=== PATIENT | female | born 1945 | race Caucasian/White ===

== ENCOUNTER 2020-02-27 20:10 | Emergency (ER) | payer MEDICARE, OTHER ==
--- NOTE | 2020-02-27 20:53 | EDM.PDOC ---
<Eliza Bautista V - Last Filed: 02/27/20 22:05> ED HPI GENERAL MEDICAL PROBLEM - General Chief Complaint: Abdominal Pain Stated Complaint: NO BOWEL MOVEMENT IN 7 DAYS ABDOMINAL PAIN Time Seen by Provider: 02/27/20 20:43 Source of Information: Reports: Patient, RN Notes Reviewed History Limitations: Reports: No Limitations - History of Present Illness INITIAL COMMENTS - FREE TEXT/NARRATIVE: Patient is a 75-year-old female who presents to the ED for evaluation of her constipation. Patient notes that she has had recent eyelid surgery for eyelid droop. She has been on pain medications, but states she has not been taking of these the last 2 days. Patient notes that her last regular bowel movement was about 1 week ago Thursday. She has tried mag citrate and is on a stool softener, but states she has not been able to get any stool out. States when she goes to the bathroom all she does is P. She is nauseous, and did vomit on the way to the ER, she states she just has not had much of an appetite so she is been grazing the past few days and not really eaten a strong meal. She does complain of some generalized abdomen pain/cramping, and bloating sensation. She is not had any fevers or chills, cough or shortness of breath. Her primary care provider is Dr. Agus Grande. Lower Abdomen Pain Score (Numeric/FACES): 7 - Related Data Allergies Allergy/AdvReac Type Severity Reaction Status Date / Time latex Allergy Rash Verified 12/15/14 13:43 Sulfa (Sulfonamide Allergy Rash Verified 12/15/14 13:43 Antibiotics) Home Meds: Home Meds Budesonide/Formoterol [Symbicort 160-4.5 MCG] 1 puff INH DAILY 10/18/13 [History] FLUoxetine HCl [Fluoxetine HCl] 20 mg PO DAILY 10/18/13 [History] Simvastatin 20 mg PO BEDTIME 10/18/13 [History] Methotrexate 250 mg PO WEEKLY 12/15/14 [History] Diltiazem [Cardizem CD] 180 mg PO DAILY 30 Days cap.cd 12/17/14 [Rx] Insulin Aspart [NovoLOG] 0 unit SUBCUT QIDACANDBED pen 12/17/14 [Rx] Metoprolol Tartrate [Lopressor] 25 mg PO Q12HR 30 Days tablet 12/17/14 [Rx] Rivaroxaban [Xarelto] 20 mg PO DAILY #30 tablet 12/17/14 [Rx] metFORMIN [Glucophage] 850 mg PO BID 30 Days tablet 12/17/14 [Rx] Past Medical History - Past Surgical History HEENT Surgical History: Reports: Other (See Below) Other HEENT Surgeries/Procedures: Tooth implant; eyelid lift for drooping eyelids ED ROS GENERAL - Review of Systems Review Of Systems: Comprehensive ROS is negative, except as noted in HPI. ED EXAM, GI/ABD - Physical Exam Exam: See Below Exam Limited By: No Limitations General Appearance: Alert, WD/WN, No Apparent Distress Respiratory/Chest: No Respiratory Distress, Lungs Clear, Normal Breath Sounds, No Accessory Muscle Use, Chest Non-Tender Cardiovascular: Normal Peripheral Pulses, Regular Rate, Rhythm, No Edema GI/Abdominal Exam: Normal Bowel Sounds, Soft, No Distention, No Mass, Tender (mild generalized tenderness) Extremities: Normal Inspection, Normal Capillary Refill Neurological: Alert, Oriented, Normal Cognition, No Motor/Sensory Deficits Psychiatric: Normal Affect, Normal Mood Skin Exam: Warm, Dry, Intact, Normal Color, No Rash Course - Re-Assessments/Exams Free Text/Narrative Re-Assessment/Exam: 02/27/20 20:53 Patient presents to the ED for her constipation. Will get KUB x-ray for initial exam, and then we will formulate a plan to help get her bowels moving. 02/27/20 21:44 X-ray does demonstrate quite a large stool ball within the rectum, some gas in the transverse colon, no discernible air-fluid levels. And some stool within the right colon as well. Plan is to get her some Zofran for her nausea, get a fleets enema to dislodge the stool ball in her rectum and then give her another dose of mag citrate to get her bowels moving again. Patient is okay with this plan at this time. 02/27/20 22:05 Case was discussed with Dr. Pineda, he will attend the patient care at this time. Departure - Departure Time of Disposition: 22:05 Disposition: Home, Self-Care 01 Condition: Good Clinical Impression: Constipation Qualifiers: Constipation type: drug induced constipation Qualified Code(s): K59.03 - Drug induced constipation - Discharge Information *PRESCRIPTION DRUG MONITORING PROGRAM REVIEWED*: No *COPY OF PRESCRIPTION DRUG MONITORING REPORT IN PATIENT CLAUDIA: No Instructions: Constipation, Adult, Atnx-cb-Coix, Probiotics Referrals: Agus Grande Jr, MD [Primary Care Provider] - Forms: ED Department Discharge Additional Instructions: You were evaluated in the ER today for your constipation. X-rays were taken, and this did demonstrate quite a large amount of stool within your rectum. You were given an enema, some meds for nausea and another bottle of mag citrate to help get your bowels moving again, this seemed to help relieve some of your constipation. I recommend that you go home try to increase your oral fluid intake, use a stool softener like MiraLAX or Dulcolax daily, incorporate probiotics in your diet to regulate normal bowel health as well. If you are to take narcotic medications, I recommend that you keep the stools extra soft and you might want to take a second dose of stool softeners throughout the day. Please return to the ER at any time if symptoms change or worsen. <Dannie Pineda - Last Filed: 02/27/20 22:23> Course - Orders/Labs/Meds Orders: Active Orders 24 hr Category Date Time Status Enema [RC] ASDIRECTED Care 02/27/20 21:38 Active KUB [Abdomen 1V Flat] [CR] Stat Exams 02/27/20 20:43 Taken Meds: Medications Discontinued Medications Generic Name Dose Route Start Last Admin Trade Name Dony PRN Reason Stop Dose Admin Magnesium Citrate 296 ml 02/27/20 21:38 02/27/20 21:46 Citrate Of Magnesia PO 02/27/20 21:39 296 ml ONETIME ONE Administration Ondansetron HCl 4 mg 02/27/20 21:38 02/27/20 21:46 Zofran Odt PO 02/27/20 21:39 4 mg ONETIME ONE Administration - Re-Assessments/Exams Free Text/Narrative Re-Assessment/Exam: 02/27/20 22:23 Is doing much better at this time she had a very good BM and would really like to go home we will discharge her with discharge instructions already done.
[2020-02-27] MEDS ORDERED: Magnesium Citrate Solution 296 ML Bottle PO ONE (21:38)
[2020-02-27] MEDS ORDERED: Ondansetron 4 MG Tab.DIS PO ONE (21:38)
--- NOTE | 2020-02-28 08:10 | CR ---
Abdomen: Supine view of the abdomen was obtained. Comparison: Prior CT abdomen and pelvis exam of 05/02/10. Bowel gas pattern appears normal. Mild scoliosis is noted within the spine with scattered disc space narrowing and endplate osteophytes. 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 This finding measures approximately 1.1 cm. Impression: 1. Findings believed to be incidental as noted above. Diagnostic code #2
== END 2020-02-27 22:34 | disposition home or self-care (01) ==
LOC: JD.ED 20:10
DX: K59.03 Drug induced constipation (principal); Z88.2 Allergy status to sulfonamides; Z91.040 Latex allergy status
CPT/HCPCS: 74018; 99283; A9270

== ENCOUNTER 2020-04-25 10:13 | Day surgery (SDC) | payer MEDICARE, OTHER ==
[~2020-04-25 10:13] MED LIST: Lactated Ringers 1,000 ML IV SCH; Lidocaine 1%/Sod Bicarbonate in NS 8.4% 1 ML Syringe IDERM PRN; Sodium Chloride 0.9% 10 ML Syringe FLUSH PRN
--- NOTE | 2020-04-25 10:49 | PCM.PREANE ---
Preanesthetic Assessment - Procedure Proposed Procedure: EGD and Colonoscopy - Anesthesia/Transfusion/Family Hx Anesthesia History: Prior Anesthesia Without Reaction - Review of Systems General: No Symptoms Pulmonary: No Symptoms Cardiovascular: No Symptoms Gastrointestinal: No Symptoms Neurological: No Symptoms Other: Reports: Diabetes - Physical Assessment NPO Status Date: 04/24/20 NPO Status Time: 22:00 Vital Signs: 122/67 87 98% ASA Class: 2 Mental Status: Alert & Oriented x3 Airway Class: Mallampati = 2 Dentition: Reports: Normal Dentition, [place](s) Thyro-Mental Finger Breadths: 3 Mouth Opening Finger Breadths: 3 ROM/Head Extension: Full Lungs: Clear to Auscultation, Normal Respiratory Effort Cardiovascular: Regular Rate, Regular Rhythm - Lab Values: Laboratory Last Values POC Glucose 154 mg/dL (83-110) H 04/25/20 10:33 - Allergies Allergies/Adverse Reactions: Allergies Allergy/AdvReac Type Severity Reaction Status Date / Time prednisone Allergy Arrhythmias Verified 04/24/20 11:23 Sulfa (Sulfonamide Allergy Rash Verified 04/24/20 11:23 Antibiotics) triamcinolone [From Kenalog] Allergy Arrhythmias Verified 04/24/20 11:23 - Anesthesia Plan Beta Rola: Metoprolol - Acknowledgements Anesthesia Type Planned: MAC Pt an Appropriate Candidate for the Planned Anesthesia: Yes Alternatives and Risks of Anesthesia Discussed w Pt/Guardian: Yes Pt/Guardian Understands and Agrees with Anesthesia Plan: Yes PreAnesthesia Questionnaire HEENT History: Reports: Sinusitis, Other (See Below) Other HEENT History: postnasal drip, pharyngitis Cardiovascular History: Reports: Afib, High Cholesterol, Other (See Below) Other Cardiovascular History: varicose veins with history of stab phlebectomy Respiratory History: Reports: Asthma, Other (See Below) Other Respiratory History: cough, bronchitis, pneumonia, reactive airway disease Gastrointestinal History: Reports: GERD, Other (See Below) Other Gastrointestinal History: post op nausea and vomiting Genitourinary History: Reports: Urinary Incontinence [employer]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 History: Reports: Other (See Below) Other OB/BYN History: ovarian cyst Musculoskeletal History: Reports: RA, Other (See Below) Other Musculoskeletal History: left leg pain, left hand laceration, left wrist pain Neurological History: Reports: None Psychiatric History: Reports: None Endocrine/Metabolic History: Reports: Diabetes, Type II, Obesity/BMI 30+ Hematologic History: Reports: None Immunologic History: Reports: None Oncologic (Cancer) History: Reports: None Dermatologic History: Reports: None - Infectious Disease History Infectious Disease History: Reports: None - Past Surgical History Head Surgeries/Procedures: Reports: None HEENT Surgical History: Reports: Adenoidectomy, Cataract Surgery, Tonsillectomy, Other (See Below) Other HEENT Surgeries/Procedures: Tooth implant; eyelid lift for drooping eyelids Cardiovascular Surgical History: Reports: None Respiratory Surgical History: Reports: None GI Surgical History: Reports: Appendectomy, Colonoscopy Female Surgical History: Reports: Breast Reduction Male Surgical History: Reports: None Endocrine Surgical History: Reports: None Neurological Surgical History: Reports: Other (See Below) Other Neurological Surgeries/Procedures: spine surgery Musculoskeletal Surgical History: Reports: Other (See Below) Other Musculoskeletal Surgeries/Procedures:: right shouler surgery, knee arthroscopy Oncologic Surgical History: Reports: None Dermatological Surgical History: Reports: None - SUBSTANCE USE Tobacco Use Status *Q: Never Tobacco User - HOME MEDS Home Medications: Home Meds FLUoxetine HCl [Fluoxetine HCl] 20 mg PO DAILY 10/18/13 [History] Aspirin 325 mg PO DAILY 04/24/20 [History] Calcium Carb/Vitamin D3/Vit K1 [Calcium + D Soft Chewable Tab] 1 tab PO DAILY 04/24/20 [History] Folic Acid 0.8 mg PO DAILY 04/24/20 [History] Metoprolol Succinate 50 mg PO DAILY 04/24/20 [History] Simvastatin [Zocor] 20 mg PO BEDTIME 04/24/20 [History] Vit A/C/E AC/Znox/Cupric Oxide [Eye Vitamin-Minerals Tablet] 1 tab PO DAILY 04/24/20 [History] metFORMIN [Glucophage] 500 mg PO BID 04/24/20 [History] - CURRENT (IN HOUSE) MEDS Current Meds: Current Medications Lactated Ringer's (Ringers, Lactated) 1,000 mls @ 125 mls/hr IV ASDIRECTED FARRAH Stop: 04/25/20 23:00 Lidocaine/Sodium Bicarbonate (Buffered Lidocaine 1% In Ns 8.4%) 0.25 ml IDERM ONETIME PRN PRN Reason: Prior to IV Start Stop: 04/25/20 18:00 Sodium Chloride (Saline Flush) 10 ml FLUSH ASDIRECTED PRN PRN Reason: Keep Vein Open Stop: 04/25/20 18:00 Discontinued Medications Lactated Ringer's (Ringers, Lactated) 1,000 mls @ 125 mls/hr IV ASDIRECTED FARRAH Lidocaine/Sodium Bicarbonate (Buffered Lidocaine 1% In Ns 8.4%) 0.25 ml IDERM ONETIME PRN PRN Reason: Prior to IV Start Sodium Chloride (Saline Flush) 10 ml FLUSH ASDIRECTED PRN PRN Reason: Keep Vein Open
[2020-04-25] MEDS ORDERED: Propofol 200 MG/20 ML SDV ONE ×2 (10:59→12:52)
[2020-04-25] MEDS ORDERED: Lidocaine 1% 4 ML ONE (11:01)
[2020-04-25] MEDS ORDERED: fentaNYL 100 MCG/2 ML SDV ONE (11:01)
--- NOTE | 2020-04-25 13:15 | PCM.OPNOTE ---
- General Post-Op/Procedure Note Date of Surgery/Procedure: 04/25/20 Operative Procedure(s): EGD and colonoscopy Findings: 1. Gastritis 2. Duodenitis 3. Gastric antrum stricture 4. Irregular GE junction 5. Diverticulosis 6. Appendiceal orifice mass 7. Cecal polyp 8. Ascending colon polyp x3 9. Hepatic flexure polyp x 3 10. Transverse colon polyp x7 Pre Op Diagnosis: Change in bowel habits, abdominal pain, Unexplained weight loss, nausea, decrased appetite Post-Op Diagnosis: same Anesthesia Technique: MAC Primary Surgeon: Nae Sainz Anesthesia Provider: Leif Mcbride Pathology: 1. Duodenal biopsy 2. Antrum biopsy 3. Antrum stricture biopsies 4. GE junction biopsies 5. Appendiceal orifice mass biopsies 6. Cecal polyp 7. Ascending colon polyp x3 8. Hepatic flexure polyp x3 9. Transverse colon polyp x7 Fluid Replacement, Intraop: 1,000 Complications: none apparent Condition: Good
--- NOTE | 2020-04-25 13:19 | PCM48HPAN ---
Post Anesthesia Note - EVALUATION WITHIN 48HRS OF ANESTHETIC Vital Signs in Normal Range: Yes Patient Participated in Evaluation: Yes Respiratory Function Stable: Yes Airway Patent: Yes Cardiovascular Function Stable: Yes Hydration Status Stable: Yes Pain Control Satisfactory: Yes Nausea and Vomiting Control Satisfactory: Yes Mental Status Recovered: Yes Vital Signs: Last Vital Signs Temp 97.8 F 04/25/20 13:09 Pulse 54 L 04/25/20 13:09 Resp 12 04/25/20 13:09 BP 97/36 L 04/25/20 13:09 Pulse Ox 99 04/25/20 13:09
--- NOTE | 2020-04-25 13:25 | PCM.PRNOTE ---
- Free Text/Narrative Note: Operative Report Date of Procedure: April Pre Op Diagnosis: Change in bowel habits, abdominal pain, Unexplained weight loss, nausea, decrased appetite Post-Op Diagnosis: Same Operative Procedures: 1. EGD with biopsy 2. Colonoscopy to the cecum Primary Surgeon: Nae Sainz MD Anesthesia Provider: Leif Mcbride CRNA Anesthesia Technique: MAC IV Fluid Replacement, Intraop: 1000cc crystalloid Output, Urine Amount: 0cc EBL in mLs: 0cc Findings: 1. Gastritis 2. Duodenitis 3. Gastric antrum stricture 4. Irregular GE junction 5. Diverticulosis 6. Appendiceal orifice mass 7. Cecal polyp 8. Ascending colon polyp x3 9. Hepatic flexure polyp x 3 10. Transverse colon polyp x7 11. Duodenal diverticulum Specimens: 1. Duodenal biopsy 2. Antrum biopsy 3. Antrum stricture biopsies 4. GE junction biopsies 5. Appendiceal orifice mass biopsies 6. Cecal polyp 7. Ascending colon polyp x3 8. Hepatic flexure polyp x3 9. Transverse colon polyp x7 Drain/Tubes: None Indication: The patient is a 75-year-old lady who presented to the clinic with recent unintentional weight loss of 60lbs and change in bowel habits. The patient reported symptoms of decreased appetite and nausea as well as abdominal pain. The patient was consented for a diagnostic EGD and colonoscopy. Risks of bleeding, and perforation were discussed, and the patient agreed to the risks and wished to proceed. Description of the procedure: The patient was taken back to the endoscopy suite, and placed in the left latera l decubitus position. A bite block was placed. The patient was sedated with MAC anesthesia. The Olympus video endoscope was inserted into the oropharynx and guided under direct vision into the esophagus, stomach, and duodenum. There was a stricturing process apparent in the antrum with surrounding heaped-up gastric mucosa with altered tissue appearance. Biopsies were taken in this area with a cold biopsy forceps. The duodenal bulb was remarkable for duodenitis and biopsied with a cold biopsy forceps. The second portion of the duodenum was remarkable for a 1cm duodenal diverticula proximal to the ampulla of [place]. The scope was withdrawn to the gastric antrum, and it was inspected. Cold biopsy forceps were used to take tissue samples for H. pylori. The scope was withdrawn to the stomach and retroflexed. There was no increased fluid, food or secretions in the upper gastrointestinal tract. No erosions or ulcers were noted. The scope was withdrawn to the esophagus. A this point we noted an irregular Z-line which was biopsied in four quadrants with a cold biopsy forceps. The endoscope was then withdrawn. Next, anorectal examination was performed. No lesions, masses or hemorrhoids we re noted externally or on palpation. The scope was placed into the rectum and advanced to cecum. Upon reaching the cecum, and the patients cecum was entered. There was mild tortuosity of the colon. The ileocecal valve was well visualized and the appendiceal orifice identified. The patient had good bowel prep, 90-95% of the mucosa was visible with some washing and suctioning. At this point, the scope was slowly withdrawn, paying attention to the mucosa. There was a 1.3cm well circumscribed mass at the appendiceal orifice that had a mucoid inclusion visible. Biopsies were taken of the mass using a cold biopsy forceps. There was a 3mm semi-sessile cecal polyp removed with a jumbo cold biopsy forceps. There was a 5mm sessile irregular polyp seen in the ascending colon and removed with a jumbo cold biopsy forceps. Two additional 2-4mm sessile polyps were removed in the ascending colon using a jumbo cold biopsy forceps. The hepatic flexure had 5 polyps visible in close approximation. One of the polyp areas appeared to be about 1.6cm and sessile. It was partially removed with the hot snare and jumbo cold biopsy forceps, but was technically difficult due to the location behind a fild in the hepatic flexure. On the opposing fold in the hepatic flexure, a 1.3cm semi-sessile polyp was visible and biopsied with a jumbo cold biopsy forceps. This was also a technically difficult location and could not be completely removed. Both of these difficult, large polyps were tattooed with Aimee ink.Three additional 3-4mm semi-sessile polyps were removed from the hepatic flexure with a jumbo cold biopsy forceps. In the transverse colon, four polyps measuring 3-5mm and semi-sessile were removed with a jumbo cold biopsy forceps. A Sessile 1.3cm polyp was seen and removed with a jumbo cold biopsy forceps from the transverse colon, then marked with an Aimee ink tattoo. An additional 5mm semi sessile and 8mm semi-pedunculated polyp were removed from the transverse colon with the hot snare. At this point the scope was withdrawn. Additional polyps were seen, but not resected due to the large number already removed and the risk of perforation. Diverticulosis was noted in the descending and sigmoid colon. In the rectum, scope was retroflexed and some hemorrhoidal tissue was noted. The scope was placed back in the lumen and excess air was aspirated. The scope was removed. The patient tolerated the procedure very well. Complications: None apparent Condition: The patient was transported to PACU in stable condition. Nae Sainz MD General Surgery
[2020-04-25 14:09] VITALS: PULSE 57
[2020-04-25 14:25] VITALS: BP 134/67
== END 2020-04-25 14:05 | disposition home or self-care (01) ==
LOC: JD.SDS 10:13
PROVIDERS: ATTEND Surgery
DX: D12.2 Benign neoplasm of ascending colon (principal); D12.1 Benign neoplasm of appendix; D12.0 Benign neoplasm of cecum; D12.3 Benign neoplasm of transverse colon; K29.50 Unspecified chronic gastritis without bleeding; K29.80 Duodenitis without bleeding; K57.30 Diverticulosis of large intestine without perforation or abscess without bleeding; K57.10 Diverticulosis of small intestine without perforation or abscess without bleeding; K64.9 Unspecified hemorrhoids; K31.89 Other diseases of stomach and duodenum; K21.9 Gastro-esophageal reflux disease without esophagitis; E11.9 Type 2 diabetes mellitus without complications; I35.8 Other nonrheumatic aortic valve disorders; I35.1 Nonrheumatic aortic (valve) insufficiency; J45.909 Unspecified asthma, uncomplicated; E66.01 Morbid (severe) obesity due to excess calories; E78.00 Pure hypercholesterolemia, unspecified; I48.0 Paroxysmal atrial fibrillation; Z90.49 Acquired absence of other specified parts of digestive tract; Z79.84 Long term (current) use of oral hypoglycemic drugs; Z98.890 Other specified postprocedural states; Z79.82 Long term (current) use of aspirin; Z79.899 Other long term (current) drug therapy; Z88.2 Allergy status to sulfonamides; Z88.8 Allergy status to other drugs, medicaments and biological substances; Z68.29 Body mass index [BMI] 29.0-29.9, adult
CPT/HCPCS: 43239; 45380; 45381; 82962; J2704; J3010; J7120; 00813; 88305

== ENCOUNTER 2020-07-25 07:36 | Inpatient (IN) | payer MEDICARE, OTHER ==
--- NOTE | 2020-07-24 12:07 | PCM.PREANE ---
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) Gastrointestinal: No Symptoms (GERD-controlled) Neurological: No Symptoms (2009 spine surgery) Other: Reports: Easy Bruising, Diabetes (AM blood sugar=), Sinus Problem (sinusitis), Depression - Physical Assessment NPO Status Date: 07/24/20 NPO Status Time: 23:59 Vital Signs: HR:58 Sat:95% Temp: 97.3 Resp:16 B/P:133/55 Height: 1.52 m Weight: 65 kg ASA Class: 3 Mental Status: Alert & Oriented x3 Airway Class: Mallampati = 2 Dentition: Reports: Normal Dentition, [place](s), [place] Thyro-Mental Finger Breadths: 3 Mouth Opening Finger Breadths: 3 ROM/Head Extension: Full Lungs: Clear to Auscultation, Normal Respiratory Effort Cardiovascular: Regular Rate, Regular Rhythm, No Murmurs - Imaging/EKG Impressions: EKG: SR rate=66 Echocardiogram: EF=60%, mildly dilated left atrium, Grade II DD - Allergies Allergies/Adverse Reactions: Allergies Allergy/AdvReac Type Severity Reaction Status Date / Time Sulfa (Sulfonamide Allergy Rash Verified 07/24/20 14:12 Antibiotics) prednisone AdvReac Arrhythmias Verified 07/24/20 14:12 triamcinolone [From Kenalog] AdvReac Arrhythmias Verified 07/24/20 14:12 - Anesthesia Plan Pre-Op Medication Ordered: Beta Rola, Other (oral tylenol and gabapentin at 0800) Beta Rola: Metoprolol Med Last Dose Date: 07/24/20 Med Last Dose Time: 08:30 - Acknowledgements Anesthesia Type Planned: General Anesthesia Pt an Appropriate Candidate for the Planned Anesthesia: Yes Alternatives and Risks of Anesthesia Discussed w Pt/Guardian: Yes Pt/Guardian Understands and Agrees with Anesthesia Plan: Yes PreAnesthesia Questionnaire HEENT History: Reports: Sinusitis, Other (See Below) Other HEENT History: postnasal drip, pharyngitis Cardiovascular History: Reports: Afib, High Cholesterol, Other (See Below) Other Cardiovascular History: varicose veins with history of stab phlebectomy Respiratory History: Reports: Asthma, Other (See Below) Other Respiratory History: cough, bronchitis, pneumonia, reactive airway disease Gastrointestinal History: Reports: GERD, Other (See Below) Other Gastrointestinal History: post op nausea and vomiting Genitourinary History: Reports: Urinary Incontinence [employer] History: Reports: Other (See Below) Other OB/BYN History: ovarian cyst Musculoskeletal History: Reports: RA, Other (See Below) Other Musculoskeletal History: left leg pain, left hand laceration, left wrist pain Neurological History: Reports: None Psychiatric History: Reports: None Endocrine/Metabolic History: Reports: Diabetes, Type II, Obesity/BMI 30+ Hematologic History: Reports: None Immunologic History: Reports: None Oncologic (Cancer) History: Reports: None Dermatologic History: Reports: None - Infectious Disease History Infectious Disease History: Reports: None - Past Surgical History HEENT Surgical History: Reports: Other (See Below) - HOME MEDS Home Medications: Home Meds Aspirin 325 mg PO DAILY 04/24/20 [History] Calcium Carb/Vitamin D3/Vit K1 [Calcium + D Soft Chewable Tab] 1 tab PO DAILY 04/24/20 [History] Metoprolol Succinate 50 mg PO DAILY 04/24/20 [History] Simvastatin [Zocor] 20 mg PO BEDTIME 04/24/20 [History] Vit A/C/E AC/Znox/Cupric Oxide [Eye Vitamin-Minerals Tablet] 1 tab PO DAILY 04/24/20 [History] metFORMIN [Glucophage] 500 mg PO BID 04/24/20 [History] FLUoxetine HCl [Prozac] 20 mg PO DAILY 07/24/20 [History] Folic Acid 1 mg PO DAILY 07/24/20 [History] InFLIXimab [Remicade] 1 dose IV ASDIRECTED 07/24/20 [History] Omeprazole Magnesium [Prilosec Otc] 20 mg PO DAILY 07/24/20 [History] - CURRENT (IN HOUSE) MEDS Current Meds: Current Medications Lactated Ringer's (Ringers, Lactated) 1,000 mls @ 125 mls/hr IV ASDIRECTED FARRAH Stop: 07/25/20 23:00 Lidocaine/Sodium Bicarbonate (Lidocaine 1%/Sod Bicarbonate In Ns 8.4% 1 Ml Syringe) 0.25 ml IDERM ONETIME PRN PRN Reason: Prior to IV Start Stop: 07/25/20 18:00 Scopolamine (Scopolamine 1.5 Mg Transdermal Patch) 1.5 mg TRDERM ONETIME PRN PRN Reason: PONV Stop: 07/25/20 16:00 Sodium Chloride (Sodium Chloride 0.9% 10 Ml Syringe) 10 ml FLUSH ASDIRECTED PRN PRN Reason: Keep Vein Open Stop: 07/25/20 18:00
[~2020-07-25 07:36] MED LIST changes: +Acetaminophen 325 MG Tab PO ONE; +Albuterol 0.083% 2.5 MG/3 ML Neb Soln NEB PRN; +Dexamethasone 4 MG/ML 5 ML MDV ONE; +Gabapentin 300 MG Cap PO ONE; +HYDROmorphone 0.5 MG/0.5 ML Syringe ONE; +Ketorolac 30 MG/ML SDV ONE; +Lactated Ringers 0 ML ONE; +Lactated Ringers 1,000 ML ONE; +Lidocaine 1% 0 ML ONE; +Lidocaine 1% 4 ML ONE; +Midazolam 1 MG/ML 2 ML SDV ONE; +Ondansetron 4 MG/2 ML SDV ONE; +Propofol 200 MG/20 ML SDV ONE; +Rocuronium 50 MG/5 ML Vial ONE; +Scopolamine 1.5 MG Transdermal Patch TRDERM PRN; +ceFAZolin 1 GM Vial ONE; +fentaNYL 100 MCG/2 ML SDV ONE; +fentaNYL 250 MCG/5 ML SDV ONE; +metroNIDAZOLE/Normal Saline 500 MG in Premix Bag 1 BAG IV ONE
[2020-07-25] MEDS ORDERED: Bupivacaine 0.5%/EPINEPHrine 1:200,000 50 ML MDV ONE (08:00)
[2020-07-25] MEDS ORDERED: Lidocaine 1% with EPINEPHrine 1:100,000 10 ML MDV ONE (08:00)
[2020-07-25] MEDS ORDERED: Gabapentin 300 MG Cap PO ONE (08:00)
[2020-07-25] MEDS ORDERED: metroNIDAZOLE/Normal Saline 500 MG in Premix Bag 1 BAG IV ONE (08:00)
[2020-07-25] MEDS ORDERED: ePHEDrine 50 MG/ML SDV ONE (10:02)
[2020-07-25] MEDS ORDERED: ePHEDrine 50 MG/ML SDV IVPUSH PRN (10:10)
[2020-07-25] MEDS ORDERED: HYDROmorphone 0.5 MG/0.5 ML Syringe IVPUSH PRN ×2 (10:10→14:15)
[2020-07-25] MEDS ORDERED: Ondansetron 4 MG/2 ML SDV IVPUSH PRN (10:10)
[2020-07-25] MEDS ORDERED: Albuterol 0.083% 2.5 MG/3 ML Neb Soln NEB ONE (10:10)
[2020-07-25] MEDS ORDERED: diphenhydrAMINE 50 MG/ML SDV IVPUSH PRN (10:10)
[2020-07-25] MEDS ORDERED: fentaNYL 100 MCG/2 ML SDV IVPUSH PRN (10:10)
[2020-07-25] MEDS ORDERED: Labetalol 100 MG/20 ML MDV ONE (10:31)
[2020-07-25] MEDS ORDERED: hydrALAZINE 20 MG/ML SDV ONE (10:56)
[2020-07-25] MEDS ORDERED: HYDROmorphone 0.5 MG/0.5 ML Syringe ONE (11:01)
[2020-07-25] MEDS ORDERED: Lactated Ringers 1,000 ML ONE ×2 (11:26→13:02)
[2020-07-25] MEDS ORDERED: fentaNYL 100 MCG/2 ML SDV ONE (11:46)
[2020-07-25] MEDS ORDERED: Rocuronium 50 MG/5 ML Vial ONE (11:50)
[2020-07-25] MEDS ORDERED: Glycopyrrolate 0.2 MG/ML SDV ONE ×2 (13:15)
[2020-07-25] MEDS ORDERED: ceFAZolin 1 GM Vial ONE ×2 (13:24)
--- NOTE | 2020-07-25 13:46 | PCM.OPNOTE ---
- General Post-Op/Procedure Note Date of Surgery/Procedure: 07/25/20 Operative Procedure(s): Laparoscopic right hemicolectomy Findings: 1. Normal colon anatomy 2. Adhesions to the right abdominal sidewall 3. Dense lymph nodes at the mesenteric base Pre Op Diagnosis: dysplastic colon polyp Post-Op Diagnosis: same Anesthesia Technique: General ET Tube, Local Primary Surgeon: Nae Sainz Anesthesia Provider: Indira Newton Pathology: Right colon and terminal ileum Fluid Replacement, Intraop: 2,300 Output, Urine Amount: 200 EBL in mLs: 200 Complications: none apparent Condition: Good Free Text/Narrative:: Intake & Output 07/24/20 07/25/20 07/25/20 22:59 06:59 14:59 Output Total 200 Balance -200
--- NOTE | 2020-07-25 13:56 | PCM.PRNOTE ---
- Free Text/Narrative Note: Operative Report Date of surgery: July 25, 2020 Preoperative diagnosis: Dysplastic colon polyp Postoperative diagnosis: same Procedure: Laparoscopic right hemicolectomy Surgeon: Dr. Nae Sainz Anesthesia: General ET and local Chief Accounting Officer: Indira Newton CRNA Estimated blood loss: 200 mL IV fluids: 2300 mL Urine output: 200 mL Drains and lines: None Findings: 1. Normal colon anatomy 2. Adhesions to the right abdominal sidewall 3. Dense lymph nodes at the mesenteric base Pathology: Right colon and terminal ileum INDICATIONS FOR OPERATION: The patient is a 75-year-old lady who was evaluated for anemia. She underwent EGD and colonoscopy which showed multiple tubular adenomas as well as a very abnormal appearing polyp at the appendiceal orifice. The patient previously had undergone an appendectomy. This polyp look suspicious for a mucinous carcinoma. Biopsy was done which did not reveal any malignancy, but this was discordant with the appearance of the polyp. We discussed a right hemicolectomy for removal of this dysplastic appearing polyp as well as treatment of her multiple other polyps. We recommended she undergo a laparoscopic right hemicolectomy. We discussed risks of infection, bleeding, blood clot, anastomotic breakdown, and need for possible ostomy. Her written con sent was obtained. DESCRIPTION OF OPERATION: The patient was brought to the OR and placed supine on the operating table. After undergoing anesthesia, her abdomen was prepped and draped in standard sterile fashion. Bilateral arms were padded and tucked at the patient's sides. She had antibiotics according to SCIP guidelines. A surgical timeout was performed. She had a Salazar catheter placed with drainage of clear yellow urine. We began by making a lower midline incision and grasping the fascia. This was opened sharply and a 12 mm port was then placed into the abdomen. The abdomen was insufflated to 15 mmHg. We proceeded to inspect the abdomen. We then proceeded to perform a T AP block using mixed 1% lidocaine with epinephrine and 0.5% bupivacaine with epinephrine. We proceeded to place additional ports. Two 5 mm ports were placed in the upper midline and left lower quadrant. An additional 5 mm port was placed in the right lower quadrant. The mesentery connecting to the cecum was then grasped and retracted towards the abdominal wall to facilitate visualization of the ileocolic artery. The mesentery was then opened and the ileocolic artery pedicle was identified. We ligated the vascular pedicle using the LigaSure device. We then proceeded to dissect more laterally and superiorly. During the dissection, we did note that the patient's tissues would bleed very easily and with minimal pressure. The medial dissection was carried up to the level of the kidney and hepatic flexure. Once we had successfully done our medial dissection, the lateral dissection was carried out along the white line of T[place]t up to the level of the Gerota's fascia. We then connected our medial lateral dissections to fully mobilize the colon. Once this was completed we again turned our attention down into the pelvis. The ureter was then identified along the right pelvic wall. A vertical midline incision was made connecting the 12 mm port and upper midline 5mm port. The wound protector was inserted. The mobilized portion of bowel was brought out. There were still adhesions noted at the base of the mesentery. The ureter had been difficult to identify. Some of the connective tissue was divided to free up the terminal ileum mesentery. The GelPort was placed on top of the wound protector and the abdomen reinsufflated. We could clearly identify the ureter at that point and was felt safe to continue with the dissection. The GelPort was then removed and the colon section again exteriorized. There was a density at the base of the mesentery noted. Additional mesenteric tissue was then excised to be sent with the specimen. The colon was cut distal to the hepatic flexure with a linear stapler. The terminal ileum was dissected 15 cm proximal and cut with the linear stapler. The anti-mesenteric sides of the bowel were then approximated and an additional linear staple load was fired to connect the lumens in a [id number] anastomosis. A 3-0 silk suture was then placed distal to the base of the [id number] anastomosis to protect the staple line. Additional 3-0 silk sutures were placed at bleeding points on the suture line to achieve hemostasis the cut ends of the bowel were closed and previous staple lines were excised with another linear staple load. The bowel was then return to the abdomen. The abdomen was then re-insufflated and the area inspected for hemostasis. The ports and wound protector were then removed. An additional bleeding point was noted and a 3-0 silk suture was placed at this area. The midline incision was then inspected and the fascia was grasped. It was closed with a running 0 PDS suture. The midline wound was then irrigated. The skin was closed with 4-0 Monocryl , mastosol, and steri-strips. The patient was awakened from anesthesia and was extubated without difficulty. She was transported to PACU in stable condition. Complications: None apparent Condition: Good Nae Sainz MD General surgery
--- NOTE | 2020-07-25 14:08 | PCM.POSTAN ---
POST ANESTHESIA ASSESSMENT - MENTAL STATUS Mental Status: Alert - VITAL SIGNS Vital Signs: Last Vital Signs Temp 97.1 07/25/20 1354 Pulse 105 07/25/20 1354 Resp 11 07/25/20 1354 BP 112/62 07/25/20 1354 Pulse Ox 98% 07/25/20 1354 - RESPIRATORY Respiratory Status: Respiratory Rate WNL, Airway Patent, O2 Saturation Stable - CARDIOVASCULAR CV Status: Pulse Rate WNL, Blood Pressure Stable - GASTROINTESTINAL GI Status: No Symptoms - POST OP HYDRATION Hydration Status: Adequate & Stable
--- NOTE | 2020-07-25 14:47 | PCM.EKG ---
#1 Interpretation EKG Date: 07/25/20 Time: 14:19 Rhythm: A-Fib (With rate of 54 to 115 bpm) Rate (Beats/Min): 107 [place]: Normal P-Wave: Absent QRS: Other (Early R wave transition consider right ventricular appear to be versus septal hypertrophy pattern. Decreased voltage appreciated in the limb leads.) ST-T: Other (There is T wave inversion in lead V3 which is nonspecific by itse lf. There is T wave flattening in leads II and aVL again nonspecific finding. There is a diffuse repolarization abnormality) QT: Prolonged (Mildly prolonged) EKG Interpretation Comments: Abnormal ECG
[2020-07-25] MEDS: Acetaminophen 325 MG Tab PO SCH ×3 (15:43→22:18)
[2020-07-25] MEDS: Ketorolac 15 MG/ML SDV IVPUSH SCH ×2 (15:58→20:06)
[2020-07-25] MEDS: Sodium Chloride 0.45% 1,000 ML IV SCH (16:04)
[2020-07-25] MEDS: Ondansetron 4 MG/2 ML SDV IVPUSH SCH ×2 (16:08→20:07)
[2020-07-25] MEDS: oxyCODONE 5 MG Tab PO PRN (20:07)
[2020-07-25] MEDS: metFORMIN 500 MG Tab PO SCH (20:07)
[2020-07-25] MEDS ORDERED: Simvastatin 20 MG Tab PO SCH (21:00)
[2020-07-26] MEDS: Ondansetron 4 MG/2 ML SDV IVPUSH SCH ×4 (02:43→15:38)
[2020-07-26] MEDS: Ketorolac 15 MG/ML SDV IVPUSH SCH ×2 (02:43→09:03)
[2020-07-26] MEDS: Acetaminophen 325 MG Tab PO SCH ×5 (02:44→19:06)
[2020-07-26] MEDS: Sodium Chloride 0.45% 1,000 ML IV SCH (05:54)
--- NOTE | 2020-07-26 07:24 | PCM48HPAN ---
Post Anesthesia Note - EVALUATION WITHIN 48HRS OF ANESTHETIC Vital Signs in Normal Range: Yes Patient Participated in Evaluation: Yes Respiratory Function Stable: Yes Airway Patent: Yes Cardiovascular Function Stable: Yes Hydration Status Stable: Yes Pain Control Satisfactory: Yes Nausea and Vomiting Control Satisfactory: Yes Mental Status Recovered: Yes Vital Signs: Last Vital Signs Temp 36.6 C 07/26/20 03:46 Pulse 68 07/26/20 03:46 Resp 18 07/26/20 03:46 BP 118/98 H 07/26/20 03:46 Pulse Ox 94 L 07/26/20 03:46
[2020-07-26] MEDS ORDERED: Pantoprazole 40 MG Tab.CR PO SCH (09:00)
[2020-07-26] MEDS ORDERED: Multivitamins with Minerals/Folic Acid/Lutein/Zeaxanth Tab PO SCH (09:00)
[2020-07-26] MEDS ORDERED: FLUoxetine 20 MG Cap PO SCH (09:00)
[2020-07-26] MEDS ORDERED: Folic Acid 1 MG Tab PO SCH (09:00)
[2020-07-26] MEDS ORDERED: Metoprolol Succinate 50 MG Tab.ER PO SCH (09:00)
[2020-07-26] MEDS ORDERED: Calcium Carbonate/Vitamin D3 600 MG-200 Units Tab PO SCH (09:00)
[2020-07-26] MEDS: metFORMIN 500 MG Tab PO SCH (09:01)
[2020-07-26] MEDS: Heparin Sodium 5,000 Units/ML Vial SUBCUT SCH ×2 (09:02→15:38)
[2020-07-26] MEDS: oxyCODONE 5 MG Tab PO PRN ×2 (12:10→19:06)
--- NOTE | 2020-07-26 16:05 | PCM.SURGPN ---
- General Info Date of Service: 07/26/20 POD#: 1 Functional Status: Reports: Pain Controlled, Tolerating Diet, Ambulating, Urinating, Other (had bowel movement this afternoon. No nausea) - Patient Data Vitals - Most Recent: Last Vital Signs Temp 36.6 C 07/26/20 12:14 Pulse 73 07/26/20 12:14 Resp 14 07/26/20 12:14 BP 108/54 L 07/26/20 12:14 Pulse Ox 93 L 07/26/20 12:14 Weight - Most Recent: 69.808 kg I&O - Last 24 Hours: Intake & Output 07/26/20 07/26/20 07/26/20 06:59 14:59 22:59 Intake Total 800 200 0 Output Total 52 * Balance 28K 200 0 Lab Results Last 24 Hrs: Laboratory Results - last 24 hr 07/25/20 07/25/20 07/26/20 Range/Units 17:06 20:21 04:44 WBC 7.53 (3.98-10.04) K/mm3 RBC 3.09 L (3.98-5.22) M/mm3 Hgb 10.2 L D (11.2-15.7) gm/dl Hct 31.4 L (34.1-44.9) % MCV 101.6 H (79.4-94.8) fl MCH 33.0 H (25.6-32.2) pg MCHC 32.5 (32.2-35.5) g/dl RDW Std Deviation 46.0 (36.4-46.3) fL Plt Count 91 L (182-369) K/mm3 MPV 9.8 (9.4-12.3) fl Neut % (Auto) 78.6 H (34.0-71.1) % Lymph % (Auto) 12.7 L (19.3-51.7) % [place] % (Auto) 8.0 (4.7-12.5) % Eos % (Auto) 0.3 L (0.7-5.8) Baso % (Auto) 0.1 (0.1-1.2) % Neut # (Auto) 5.92 (1.56-6.13) K/mm3 Lymph # (Auto) 0.96 L (1.18-3.74) K/mm3 [place] # (Auto) 0.60 H (0.24-0.36) K/mm3 Eos # (Auto) 0.02 L (0.04-0.36) K/mm3 Baso # (Auto) 0.01 (0.01-0.08) K/mm3 Manual Slide Review Abnormal smear Sodium (136-145) mEq/L Potassium (3.5-5.1) mEq/L Chloride (98-107) mEq/L Carbon Dioxide (21-32) mEq/L Anion Gap (5-15) BUN (7-18) mg/dL Creatinine (0.55-1.02) mg/dL Est Cr Clr Drug Dosing mL/min Estimated GFR (MDRD) (>60) mL/min BUN/Creatinine Ratio (14-18) Glucose (70-99) mg/dL POC Glucose 272 H 305 H (70-99) mg/dL Calcium (8.5-10.1) mg/dL 07/26/20 07/26/20 07/26/20 Range/Units 04:44 06:02 12:16 WBC (3.98-10.04) K/mm3 RBC (3.98-5.22) M/mm3 Hgb (11.2-15.7) gm/dl Hct (34.1-44.9) % MCV (79.4-94.8) fl MCH (25.6-32.2) pg MCHC (32.2-35.5) g/dl RDW Std Deviation (36.4-46.3) fL Plt Count (182-369) K/mm3 MPV (9.4-12.3) fl Neut % (Auto) (34.0-71.1) % Lymph % (Auto) (19.3-51.7) % [place] % (Auto) (4.7-12.5) % Eos % (Auto) (0.7-5.8) Baso % (Auto) (0.1-1.2) % Neut # (Auto) (1.56-6.13) K/mm3 Lymph # (Auto) (1.18-3.74) K/mm3 [place] # (Auto) (0.24-0.36) K/mm3 Eos # (Auto) (0.04-0.36) K/mm3 Baso # (Auto) (0.01-0.08) K/mm3 Manual Slide Review Sodium 132 L (136-145) mEq/L Potassium 4.4 (3.5-5.1) mEq/L Chloride 99 (98-107) mEq/L Carbon Dioxide 24 (21-32) mEq/L Anion Gap 13.4 (5-15) BUN 16 (7-18) mg/dL Creatinine 1.2 H (0.55-1.02) mg/dL Est Cr Clr Drug Dosing 30.57 mL/min Estimated GFR (MDRD) 44 (>60) mL/min BUN/Creatinine Ratio 13.3 L (14-18) Glucose 246 H (70-99) mg/dL POC Glucose 203 H 188 H (70-99) mg/dL Calcium 7.7 L (8.5-10.1) mg/dL Med Orders - Current: Current Medications Acetaminophen (Acetaminophen 325 Mg Tab) 650 mg PO Q4H [facility] Last Admin: 07/26/20 15:38 Dose: 650 mg Documented by: Calcium Carbonate (Calcium Carbonate/Vitamin D3 600 Mg-200 Units Tab) 1 tab PO DAILY [facility] Last Admin: 07/26/20 09:01 Dose: 1 tab Documented by: Fluoxetine HCl (Fluoxetine 20 Mg Cap) 20 mg PO DAILY [facility] Last Admin: 07/26/20 09:01 Dose: 20 mg Documented by: Folic Acid (Folic Acid 1 Mg Tab) 1 mg PO DAILY [facility] Last Admin: 07/26/20 09:02 Dose: 1 mg Documented by: Heparin Sodium (Porcine) (Heparin Sodium 5,000 Units/Ml Vial) 5,000 units SUBCUT Q8H [facility] Last Admin: 07/26/20 15:38 Dose: 5,000 units Documented by: Hydromorphone HCl (Hydromorphone 0.5 Mg/0.5 Ml Syringe) 0.5 mg IVPUSH Q2H PRN PRN Reason: Pain (severe 7-10) Last Admin: 07/26/20 15:37 Dose: 0.5 mg Documented by: Metformin HCl (Metformin 500 Mg Tab) 500 mg PO BID [facility] Last Admin: 07/26/20 09:01 Dose: 500 mg Documented by: Metoprolol Succinate (Metoprolol Succinate 50 Mg Tab.Er) 50 mg PO DAILY [facility] Last Admin: 07/26/20 09:28 Dose: 50 mg Documented by: Ondansetron HCl (Ondansetron 4 Mg/2 Ml Sdv) 4 mg IVPUSH Q6H [facility] Last Admin: 07/26/20 15:38 Dose: 4 mg Documented by: Oxycodone HCl (Oxycodone 5 Mg Tab) 5 mg PO Q6H PRN PRN Reason: Pain (moderate 4-6) Last Admin: 07/26/20 12:10 Dose: 5 mg Documented by: Pantoprazole Sodium (Pantoprazole 40 Mg Tab.Cr) 40 mg PO DAILY [facility] Last Admin: 07/26/20 09:02 Dose: 40 mg Documented by: Simvastatin (Simvastatin 20 Mg Tab) 20 mg PO BEDTIME [facility] Last Admin: 07/25/20 20:07 Dose: 20 mg Documented by: Vit A/Vit C/Vit E/Selen/Cu/Zn/Lutei (Multivitamins With Minerals/Folic Acid/Lutein/Zeaxanth Tab) 1 tab PO DAILY [facility] Last Admin: 07/26/20 09:01 Dose: 1 tab Documented by: Discontinued Medications Acetaminophen (Acetaminophen 325 Mg Tab) 975 mg PO NOW ONE Stop: 07/25/20 06:51 Last Admin: 07/25/20 08:00 Dose: 975 mg Documented by: Albuterol (Albuterol 0.083% 2.5 Mg/3 Ml Neb Soln) 2.5 mg NEB ONETIME PRN PRN Reason: asthma Stop: 07/25/20 18:00 Last Admin: 07/25/20 08:22 Dose: 2.5 mg Documented by: Albuterol (Albuterol 0.083% 2.5 Mg/3 Ml Neb Soln) 2.5 mg NEB ONETIME ONE Stop: 07/25/20 10:11 Last Admin: 07/25/20 16:08 Dose: Not Given Documented by: Bupivacaine HCl/Epinephrine Bitart (Bupivacaine 0.5%/Epinephrine 1:200,000 50 Ml Mdv) Confirm Administered Dose 50 ml .ROUTE .STK-MED ONE Stop: 07/25/20 08:01 Last Admin: 07/25/20 10:11 Dose: 20 ml Documented by: Cefazolin Sodium (Cefazolin 1 Gm Vial) Confirm Administered Dose 2 gm .ROUTE .STK-MED ONE Stop: 07/25/20 07:26 Cefazolin Sodium (Cefazolin 1 Gm Vial) Confirm Administered Dose 1 gm .ROUTE .STK-MED ONE Stop: 07/25/20 13:25 Cefazolin Sodium (Cefazolin 1 Gm Vial) Confirm Administered Dose 1 gm .ROUTE .STK-MED ONE Stop: 07/25/20 13:25 Dexamethasone (Dexamethasone 4 Mg/Ml 5 Ml Mdv) Confirm Administered Dose 20 mg .ROUTE .STK-MED ONE Stop: 07/25/20 07:26 Diphenhydramine HCl (Diphenhydramine 50 Mg/Ml Sdv) 25 mg IVPUSH Q6H PRN PRN Reason: pruritis Stop: 07/25/20 13:00 Ephedrine Sulfate (Ephedrine 50 Mg/Ml Sdv) Confirm Administered Dose 50 mg .ROUTE .STK-MED ONE Stop: 07/25/20 10:03 Ephedrine Sulfate (Ephedrine 50 Mg/Ml Sdv) 5 mg IVPUSH ASDIRECTED PRN PRN Reason: Hypotension Stop: 07/25/20 14:00 Fentanyl (Fentanyl 100 Mcg/2 Ml Sdv) Confirm Administered Dose 100 mcg .ROUTE .STK-MED ONE Stop: 07/25/20 07:07 Fentanyl (Fentanyl 250 Mcg/5 Ml Sdv) Confirm Administered Dose 250 mcg .ROUTE .STK-MED ONE Stop: 07/25/20 07:27 Fentanyl (Fentanyl 100 Mcg/2 Ml Sdv) 50 mcg IVPUSH Q20M PRN PRN Reason: Pain Stop: 07/25/20 12:00 Fentanyl (Fentanyl 100 Mcg/2 Ml Sdv) Confirm Administered Dose 100 mcg .ROUTE .STK-MED ONE Stop: 07/25/20 11:47 Gabapentin (Gabapentin 300 Mg Cap) 300 mg PO ONETIME ONE Stop: 07/25/20 08:01 Last Admin: 07/25/20 08:00 Dose: 300 mg Documented by: Glycopyrrolate (Glycopyrrolate 0.2 Mg/Ml Sdv) Confirm Administered Dose 0.8 mg .ROUTE .STK-MED ONE Stop: 07/25/20 13:16 Glycopyrrolate (Glycopyrrolate 0.2 Mg/Ml Sdv) Confirm Administered Dose 0.2 mg .ROUTE .STK-MED ONE Stop: 07/25/20 13:16 Hydralazine HCl (Hydralazine 20 Mg/Ml Sdv) Confirm Administered Dose 20 mg .ROUTE .STK-MED ONE Stop: 07/25/20 10:57 Hydromorphone HCl (Hydromorphone 0.5 Mg/0.5 Ml Syringe) Confirm Administered Dose 0.5 mg .ROUTE .STK-MED ONE Stop: 07/25/20 07:26 Hydromorphone HCl (Hydromorphone 0.5 Mg/0.5 Ml Syringe) 0.5 mg IVPUSH Q10M PRN PRN Reason: Pain (severe 7-10) Stop: 07/25/20 12:00 Hydromorphone HCl (Hydromorphone 0.5 Mg/0.5 Ml Syringe) Confirm Administered Dose 0.5 mg .ROUTE .STK-MED ONE Stop: 07/25/20 11:02 Lactated Ringer's (Ringers, Lactated) 1,000 mls @ 125 mls/hr IV ASDIRECTED FARRAH Stop: 07/25/20 23:00 Last Admin: 07/25/20 08:20 Dose: 125 mls/hr Documented by: Lidocaine HCl (Xylocaine-Mpf 1%) Confirm Administered Dose 4 mls @ as directed .ROUTE .STK-MED ONE Stop: 07/25/20 07:07 Lactated Ringer's (Ringers, Lactated) Confirm Administered Dose 1,000 mls @ as directed .ROUTE .STK-MED ONE Stop: 07/25/20 07:07 Lidocaine HCl (Xylocaine-Mpf 1%) Confirm Administered Dose 4 mls @ as directed .ROUTE .STK-MED ONE Stop: 07/25/20 07:26 Lactated Ringer's (Ringers, Lactated) Confirm Administered Dose 1,000 mls @ as directed .ROUTE .STK-MED ONE Stop: 07/25/20 07:26 Metronidazole 500 mg/ Premix 100 mls @ 100 mls/hr IV ONETIME ONE Stop: 07/25/20 08:59 Last Admin: 07/25/20 08:15 Dose: 100 mls/hr Documented by: Lactated Ringer's (Ringers, Lactated) Confirm Administered Dose 1,000 mls @ as directed .ROUTE .STK-MED ONE Stop: 07/25/20 11:27 Lactated Ringer's (Ringers, Lactated) Confirm Administered Dose 1,000 mls @ as directed .ROUTE .STK-MED ONE Stop: 07/25/20 13:03 Sodium Chloride (Sodium Chloride 0.45%) 1,000 mls @ 75 mls/hr IV ASDIRECTED [facility] Last Admin: 07/26/20 05:54 Dose: 75 mls/hr Documented by: Ketorolac Tromethamine (Ketorolac 30 Mg/Ml Sdv) Confirm Administered Dose 30 mg .ROUTE .STK-MED ONE Stop: 07/25/20 07:26 Ketorolac Tromethamine (Ketorolac 15 Mg/Ml Sdv) 15 mg IVPUSH Q6H [facility] Stop: 07/26/20 09:01 Last Admin: 07/26/20 09:03 Dose: 15 mg Documented by: Labetalol HCl (Labetalol 100 Mg/20 Ml Mdv) Confirm Administered Dose 100 mg .ROUTE .STK-MED ONE Stop: 07/25/20 10:32 Lidocaine/Epinephrine (Lidocaine 1% With Epinephrine 1:100,000 10 Ml Mdv) Con firm Administered Dose 30 ml .ROUTE .STK-MED ONE Stop: 07/25/20 08:01 Last Admin: 07/25/20 10:11 Dose: 20 ml Documented by: Lidocaine/Sodium Bicarbonate (Lidocaine 1%/Sod Bicarbonate In Ns 8.4% 1 Ml Syringe) 0.25 ml IDERM ONETIME PRN PRN Reason: Prior to IV Start Stop: 07/25/20 18:00 Midazolam HCl (Midazolam 1 Mg/Ml 2 Ml Sdv) Confirm Administered Dose 2 mg .ROUTE .STK-MED ONE Stop: 07/25/20 07:27 Miscellaneous Medication (Phenylephrine Hcl In 0.9% Nacl 1 Mg/10 Ml Syringe) Confirm Administered Dose 1 mg .ROUTE .STK-MED ONE Stop: 07/25/20 07:26 Miscellaneous Medication (Phenylephrine Hcl In 0.9% Nacl 1 Mg/10 Ml Syringe) 0.1 mg IVPUSH Q10M PRN PRN Reason: Hypotension Stop: 07/25/20 16:00 Neostigmine Methylsulfate (Neostigmine Methylsulfate 5 Mg/5 Ml Syringe) Confirm Administered Dose 5 mg .ROUTE .STK-MED ONE Stop: 07/25/20 13:16 Ondansetron HCl (Ondansetron 4 Mg/2 Ml Sdv) Confirm Administered Dose 4 mg .ROUTE .STK-MED ONE Stop: 07/25/20 07:26 Ondansetron HCl (Ondansetron 4 Mg/2 Ml Sdv) 4 mg IVPUSH ONETIME PRN PRN Reason: Nausea/Vomiting Stop: 07/25/20 16:00 Propofol (Propofol 200 Mg/20 Ml Sdv) Confirm Administered Dose 400 mg .ROUTE .STK-MED ONE Stop: 07/25/20 07:07 Propofol (Propofol 200 Mg/20 Ml Sdv) Confirm Administered Dose 200 mg .ROUTE .STK-MED ONE Stop: 07/25/20 07:26 Rocuronium [place] (Rocuronium 50 Mg/5 Ml Vial) Confirm Administered Dose 50 mg .ROUTE .STK-MED ONE Stop: 07/25/20 07:26 Rocuronium [place] (Rocuronium 50 Mg/5 Ml Vial) Confirm Administered Dose 50 mg .ROUTE .STK-MED ONE Stop: 07/25/20 11:51 Scopolamine (Scopolamine 1.5 Mg Transdermal Patch) 1.5 mg TRDERM ONETIME PRN PRN Reason: PONV Stop: 07/25/20 16:00 Last Admin: 07/25/20 08:00 Dose: 1.5 mg Documented by: Sodium Chloride (Sodium Chloride 0.9% 10 Ml Syringe) 10 ml FLUSH ASDIRECTED PRN PRN Reason: Keep Vein Open Stop: 07/25/20 18:00 - Exam Wound/Incisions: Healing Well, Dressing Dry and Intact, Drainage (minimal blood on underside of dressing. 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 OF APPENDIX Status: Acute Current Visit: No - Problem List Review Problem List Initiated/Reviewed/Updated: Yes - My Orders Last 24 Hours: Active Orders 24 hr Category Date Time Status Clear Liquid Diet [DIET] Diet 07/25/20 Dinner Active Regular Diet [DIET] Diet 07/26/20 Breakfast Active Calcium Carbonate/Vitamin D3 [Calcium Carbonate/Vitamin Med 07/26/20 09:00 Active D 600 MG-200 Unit] 1 tab PO DAILY FLUoxetine [PROzac] Med 07/26/20 09:00 Active 20 mg PO DAILY Folic Acid Med 07/26/20 09:00 Active 1 mg PO DAILY Heparin Sodium Med 07/26/20 08:00 Active 5,000 units SUBCUT Q8H Metoprolol Succinate [Toprol XL] Med 07/26/20 09:00 Active 50 mg PO DAILY Multivitamins/Min/FA/Lut/Zeax [ICaps MV] Med 07/26/20 09:00 Active 1 tab PO DAILY Pantoprazole [ProTONIX] Med 07/26/20 09:00 Active 40 mg PO DAILY Simvastatin [Zocor] Med 07/25/20 21:00 Active 20 mg PO BEDTIME metFORMIN [Glucophage] Med 07/25/20 21:00 Active 500 mg PO BID Medication Orders Acetaminophen (Acetaminophen 325 Mg Tab) 650 mg PO Q4H [facility] Last Admin: 07/26/20 15:38 Dose: 650 mg Documented by: Admin: 07/26/20 12:10 Dose: 650 mg Documented by: Admin: 07/26/20 05:54 Dose: 650 mg Documented by: Admin: 07/26/20 02:44 Dose: 650 mg Documented by: Admin: 07/25/20 22:18 Dose: 650 mg Documented by: Admin: 07/25/20 17:59 Dose: 650 mg Documented by: Admin: 07/25/20 15:43 Dose: Not Given Documented by: NIDA Calcium Carbonate (Calcium Carbonate/Vitamin D3 600 Mg-200 Units Tab) 1 tab PO DAILY [facility] Last Admin: 07/26/20 09:01 Dose: 1 tab Documented by: NIDA Fluoxetine HCl (Fluoxetine 20 Mg Cap) 20 mg PO DAILY [facility] Last Admin: 07/26/20 09:01 Dose: 20 mg Documented by: NIDA Folic Acid (Folic Acid 1 Mg Tab) 1 mg PO DAILY [facility] Last Admin: 07/26/20 09:02 Dose: 1 mg Documented by: NIDA Heparin Sodium (Porcine) (Heparin Sodium 5,000 Units/Ml Vial) 5,000 units SUBCUT Q8H [facility] Last Admin: 07/26/20 15:38 Dose: 5,000 units Documented by: Admin: 07/26/20 09:02 Dose: 5,000 units Documented by: NIDA Hydromorphone HCl (Hydromorphone 0.5 Mg/0.5 Ml Syringe) 0.5 mg IVPUSH Q2H PRN PRN Reason: Pain (severe 7-10) Last Admin: 07/26/20 15:37 Dose: 0.5 mg Documented by: NIDA Metformin HCl (Metformin 500 Mg Tab) 500 mg PO BID [facility] Last Admin: 07/26/20 09:01 Dose: 500 mg Documented by: Admin: 07/25/20 20:07 Dose: 500 mg Documented by: ROSEANN Metoprolol Succinate (Metoprolol Succinate 50 Mg Tab.Er) 50 mg PO DAILY [facility] Last Admin: 07/26/20 09:28 Dose: 50 mg Documented by: NIDA Ondansetron HCl (Ondansetron 4 Mg/2 Ml Sdv) 4 mg IVPUSH Q6H [facility] Last Admin: 07/26/20 15:38 Dose: 4 mg Documented by: Admin: 07/26/20 09:29 Dose: 4 mg Documented by: Admin: 07/26/20 02:43 Dose: 4 mg Documented by: Admin: 07/25/20 20:07 Dose: 4 mg Documented by: Admin: 07/25/20 16:08 Dose: Not Given Documented by: NIDA Oxycodone HCl (Oxycodone 5 Mg Tab) 5 mg PO Q6H PRN PRN Reason: Pain (moderate 4-6) Last Admin: 07/26/20 12:10 Dose: 5 mg Documented by: Admin: 07/25/20 20:07 Dose: 5 mg Documented by: ROSEANN Pantoprazole Sodium (Pantoprazole 40 Mg Tab.Cr) 40 mg PO DAILY [facility] Last Admin: 07/26/20 09:02 Dose: 40 mg Documented by: NIDA Simvastatin (Simvastatin 20 Mg Tab) 20 mg PO BEDTIME [facility] Last Admin: 07/25/20 20:07 Dose: 20 mg Documented by: ROSEANN Vit A/Vit C/Vit E/Selen/Cu/Zn/Lutei (Multivitamins With Minerals/Folic Acid/Lutein/Zeaxanth Tab) 1 tab PO DAILY [facility] Last Admin: 07/26/20 09:01 Dose: 1 tab Documented by: NIDA - Assessment Assessment (Free Text/Narrative):: 75 y/o lady POD1 s/p laparoscopic right hemicolectomy. Doing very well. - Plan Plan (Free Text/Narrative):: - continue regular diet - continue home medications - will transition to PO tylenol, ibuprofen and oxycodone - may leave wounds open air tomorrow Follow up in clinic Nae Sainz MD General surgery
--- NOTE | 2020-07-26 16:14 | PCM.DCSUM1 ---
Discharge Summary - Hospital Course Free Text/Narrative:: The patient is a 75 y/o lady who was admitted after having a laparoscopic right hemicolectomy. She did well postoperatively. On POD1 she was meeting all milestones: voiding after Salazar removed, bowel movement, eating and drinking. She was discharged home with clinic follow up. 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 - NEOPLASM OF UNCERTAIN BEHAVIOR OF APPENDIX Status: Acute Current Visit: No - Patient Summary/Data Operative Procedure(s) Performed: Laparoscopic right hemicolectomy Consults: Consultations 07/25/20 14:02 Respiratory Care Assess and Treatment [CONS] Routine - Patient Instructions Diet: Usual Diet as Tolerated Activity: As Tolerated, No Lifting Over 20 Pounds (for 2 weeks), No Lifting Over 25 Pounds (for 2 weeks) Showering/Bathing: No Tub Bathing/Swimming (for 2 weeks), Shower in AM Wound/Incision Care: Keep Operative Site/Wound Site Clean and Dry, Change Dressing Daily (as needed over the tapes) Notify Provider of: Fever, Increased Pain, Swelling and Redness, Drainage, Nausea and/or Vomiting - Discharge Plan *PRESCRIPTION DRUG MONITORING PROGRAM REVIEWED*: Not Applicable *COPY OF PRESCRIPTION DRUG MONITORING REPORT IN PATIENT CLAUDIA: Not Applicable Prescriptions/Med Rec: oxyCODONE 5 mg PO Q6H PRN 14 Days #20 tablet PRN Reason: Pain (Moderate 4-6) Ondansetron [Zofran ODT] 4 mg PO Q6H PRN 14 Days #20 tab.dis PRN Reason: Nausea Home Medications: Home Meds Aspirin 325 mg PO DAILY 04/24/20 [History] Calcium Carb/Vitamin D3/Vit K1 [Calcium + D Soft Chewable Tab] 1 tab PO DAILY 04/24/20 [History] Metoprolol Succinate 50 mg PO DAILY 04/24/20 [History] Simvastatin [Zocor] 20 mg PO BEDTIME 04/24/20 [History] Vit A/C/E AC/Znox/Cupric Oxide [Eye Vitamin-Minerals Tablet] 1 tab PO DAILY 04/24/20 [History] metFORMIN [Glucophage] 500 mg PO BID 04/24/20 [History] FLUoxetine HCl [Prozac] 20 mg PO DAILY 07/24/20 [History] Folic Acid 1 mg PO DAILY 07/24/20 [History] InFLIXimab [Remicade] 1 dose IV ASDIRECTED 07/24/20 [History] Omeprazole Magnesium [Prilosec Otc] 20 mg PO DAILY 07/24/20 [History] Acetaminophen [Tylenol] 650 mg PO Q4H tablet 07/26/20 [Rx] Ondansetron [Zofran ODT] 4 mg PO Q6H PRN 14 Days #20 tab.dis 07/26/20 [Rx] oxyCODONE 5 mg PO Q6H PRN 14 Days #20 tablet 07/26/20 [Rx] Patient Handouts: Laparoscopic Colectomy, Laparoscopic Colectomy, Care After Referrals: Willy-Nae Florence MD [Primary Care Provider] - Cali Montero MD [Physician] - (Follow up as needed.) - Discharge Summary/Plan Comment DC Time >30 min.: No - Patient Data Vitals - Most Recent: Last Vital Signs Temp 36.6 C 07/26/20 12:14 Pulse 73 07/26/20 12:14 Resp 14 07/26/20 12:14 BP 108/54 L 07/26/20 12:14 Pulse Ox 93 L 07/26/20 12:14 Weight - Most Recent: 69.808 kg I&O - Last 24 hours: Intake & Output 07/26/20 07/26/20 07/26/20 06:59 14:59 22:59 Intake Total 800 200 0 Output Total 52 * Balance 28K 200 0 Lab Results - Last 24 hrs: Laboratory Results - last 24 hr 07/25/20 07/25/20 07/26/20 Range/Units 17:06 20:21 04:44 WBC 7.53 (3.98-10.04) K/mm3 RBC 3.09 L (3.98-5.22) M/mm3 Hgb 10.2 L D (11.2-15.7) gm/dl Hct 31.4 L (34.1-44.9) % MCV 101.6 H (79.4-94.8) fl MCH 33.0 H (25.6-32.2) pg MCHC 32.5 (32.2-35.5) g/dl RDW Std Deviation 46.0 (36.4-46.3) fL Plt Count 91 L (182-369) K/mm3 MPV 9.8 (9.4-12.3) fl Neut % (Auto) 78.6 H (34.0-71.1) % Lymph % (Auto) 12.7 L (19.3-51.7) % [place] % (Auto) 8.0 (4.7-12.5) % Eos % (Auto) 0.3 L (0.7-5.8) Baso % (Auto) 0.1 (0.1-1.2) % Neut # (Auto) 5.92 (1.56-6.13) K/mm3 Lymph # (Auto) 0.96 L (1.18-3.74) K/mm3 [place] # (Auto) 0.60 H (0.24-0.36) K/mm3 Eos # (Auto) 0.02 L (0.04-0.36) K/mm3 Baso # (Auto) 0.01 (0.01-0.08) K/mm3 Manual Slide Review Abnormal smear Sodium (136-145) mEq/L Potassium (3.5-5.1) mEq/L Chloride (98-107) mEq/L Carbon Dioxide (21-32) mEq/L Anion Gap (5-15) BUN (7-18) mg/dL Creatinine (0.55-1.02) mg/dL Est Cr Clr Drug Dosing mL/min Estimated GFR (MDRD) (>60) mL/min BUN/Creatinine Ratio (14-18) Glucose (70-99) mg/dL POC Glucose 272 H 305 H (70-99) mg/dL Calcium (8.5-10.1) mg/dL 07/26/20 07/26/20 07/26/20 Range/Units 04:44 06:02 12:16 WBC (3.98-10.04) K/mm3 RBC (3.98-5.22) M/mm3 Hgb (11.2-15.7) gm/dl Hct (34.1-44.9) % MCV (79.4-94.8) fl MCH (25.6-32.2) pg MCHC (32.2-35.5) g/dl RDW Std Deviation (36.4-46.3) fL Plt Count (182-369) K/mm3 MPV (9.4-12.3) fl Neut % (Auto) (34.0-71.1) % Lymph % (Auto) (19.3-51.7) % [place] % (Auto) (4.7-12.5) % Eos % (Auto) (0.7-5.8) Baso % (Auto) (0.1-1.2) % Neut # (Auto) (1.56-6.13) K/mm3 Lymph # (Auto) (1.18-3.74) K/mm3 [place] # (Auto) (0.24-0.36) K/mm3 Eos # (Auto) (0.04-0.36) K/mm3 Baso # (Auto) (0.01-0.08) K/mm3 Manual Slide Review Sodium 132 L (136-145) mEq/L Potassium 4.4 (3.5-5.1) mEq/L Chloride 99 (98-107) mEq/L Carbon Dioxide 24 (21-32) mEq/L Anion Gap 13.4 (5-15) BUN 16 (7-18) mg/dL Creatinine 1.2 H (0.55-1.02) mg/dL Est Cr Clr Drug Dosing 30.57 mL/min Estimated GFR (MDRD) 44 (>60) mL/min BUN/Creatinine Ratio 13.3 L (14-18) Glucose 246 H (70-99) mg/dL POC Glucose 203 H 188 H (70-99) mg/dL Calcium 7.7 L (8.5-10.1) mg/dL Med Orders - Current: Current Medications Acetaminophen (Acetaminophen 325 Mg Tab) 650 mg PO Q4H [facility] Last Admin: 07/26/20 15:38 Dose: 650 mg Documented by: Calcium Carbonate (Calcium Carbonate/Vitamin D3 600 Mg-200 Units Tab) 1 tab PO DAILY [facility] Last Admin: 07/26/20 09:01 Dose: 1 tab Documented by: Fluoxetine HCl (Fluoxetine 20 Mg Cap) 20 mg PO DAILY [facility] Last Admin: 07/26/20 09:01 Dose: 20 mg Documented by: Folic Acid (Folic Acid 1 Mg Tab) 1 mg PO DAILY [facility] Last Admin: 07/26/20 09:02 Dose: 1 mg Documented by: Heparin Sodium (Porcine) (Heparin Sodium 5,000 Units/Ml Vial) 5,000 units SUBCUT Q8H [facility] Last Admin: 07/26/20 15:38 Dose: 5,000 units Documented by: Hydromorphone HCl (Hydromorphone 0.5 Mg/0.5 Ml Syringe) 0.5 mg IVPUSH Q2H PRN PRN Reason: Pain (severe 7-10) Last Admin: 07/26/20 15:37 Dose: 0.5 mg Documented by: Metformin HCl (Metformin 500 Mg Tab) 500 mg PO BID [facility] Last Admin: 07/26/20 09:01 Dose: 500 mg Documented by: Metoprolol Succinate (Metoprolol Succinate 50 Mg Tab.Er) 50 mg PO DAILY [facility] Last Admin: 07/26/20 09:28 Dose: 50 mg Documented by: Ondansetron HCl (Ondansetron 4 Mg/2 Ml Sdv) 4 mg IVPUSH Q6H [facility] Last Admin: 07/26/20 15:38 Dose: 4 mg Documented by: Oxycodone HCl (Oxycodone 5 Mg Tab) 5 mg PO Q6H PRN PRN Reason: Pain (moderate 4-6) Last Admin: 07/26/20 12:10 Dose: 5 mg Documented by: Pantoprazole Sodium (Pantoprazole 40 Mg Tab.Cr) 40 mg PO DAILY [facility] Last Admin: 07/26/20 09:02 Dose: 40 mg Documented by: Simvastatin (Simvastatin 20 Mg Tab) 20 mg PO BEDTIME [facility] Last Admin: 07/25/20 20:07 Dose: 20 mg Documented by: Vit A/Vit C/Vit E/Selen/Cu/Zn/Lutei (Multivitamins With Minerals/Folic Acid/Lutein/Zeaxanth Tab) 1 tab PO DAILY [facility] Last Admin: 07/26/20 09:01 Dose: 1 tab Documented by: Discontinued Medications Acetaminophen (Acetaminophen 325 Mg Tab) 975 mg PO NOW ONE Stop: 07/25/20 06:51 Last Admin: 07/25/20 08:00 Dose: 975 mg Documented by: Albuterol (Albuterol 0.083% 2.5 Mg/3 Ml Neb Soln) 2.5 mg NEB ONETIME PRN PRN Reason: asthma Stop: 07/25/20 18:00 Last Admin: 07/25/20 08:22 Dose: 2.5 mg Documented by: Albuterol (Albuterol 0.083% 2.5 Mg/3 Ml Neb Soln) 2.5 mg NEB ONETIME ONE Stop: 07/25/20 10:11 Last Admin: 07/25/20 16:08 Dose: Not Given Documented by: Bupivacaine HCl/Epinephrine Bitart (Bupivacaine 0.5%/Epinephrine 1:200,000 50 Ml Mdv) Confirm Administered Dose 50 ml .ROUTE .STK-MED ONE Stop: 07/25/20 08:01 Last Admin: 07/25/20 10:11 Dose: 20 ml Documented by: Cefazolin Sodium (Cefazolin 1 Gm Vial) Confirm Administered Dose 2 gm .ROUTE .STK-MED ONE Stop: 07/25/20 07:26 Cefazolin Sodium (Cefazolin 1 Gm Vial) Confirm Administered Dose 1 gm .ROUTE .STK-MED ONE Stop: 07/25/20 13:25 Cefazolin Sodium (Cefazolin 1 Gm Vial) Confirm Administered Dose 1 gm .ROUTE .STK-MED ONE Stop: 07/25/20 13:25 Dexamethasone (Dexamethasone 4 Mg/Ml 5 Ml Mdv) Confirm Administered Dose 20 mg .ROUTE .STK-MED ONE Stop: 07/25/20 07:26 Diphenhydramine HCl (Diphenhydramine 50 Mg/Ml Sdv) 25 mg IVPUSH Q6H PRN PRN Reason: pruritis Stop: 07/25/20 13:00 Ephedrine Sulfate (Ephedrine 50 Mg/Ml Sdv) Confirm Administered Dose 50 mg .ROUTE .STK-MED ONE Stop: 07/25/20 10:03 Ephedrine Sulfate (Ephedrine 50 Mg/Ml Sdv) 5 mg IVPUSH ASDIRECTED PRN PRN Reason: Hypotension Stop: 07/25/20 14:00 Fentanyl (Fentanyl 100 Mcg/2 Ml Sdv) Confirm Administered Dose 100 mcg .ROUTE .STK-MED ONE Stop: 07/25/20 07:07 Fentanyl (Fentanyl 250 Mcg/5 Ml Sdv) Confirm Administered Dose 250 mcg .ROUTE .STK-MED ONE Stop: 07/25/20 07:27 Fentanyl (Fentanyl 100 Mcg/2 Ml Sdv) 50 mcg IVPUSH Q20M PRN PRN Reason: Pain Stop: 07/25/20 12:00 Fentanyl (Fentanyl 100 Mcg/2 Ml Sdv) Confirm Administered Dose 100 mcg .ROUTE .STK-MED ONE Stop: 07/25/20 11:47 Gabapentin (Gabapentin 300 Mg Cap) 300 mg PO ONETIME ONE Stop: 07/25/20 08:01 Last Admin: 07/25/20 08:00 Dose: 300 mg Documented by: Glycopyrrolate (Glycopyrrolate 0.2 Mg/Ml Sdv) Confirm Administered Dose 0.8 mg .ROUTE .STK-MED ONE Stop: 07/25/20 13:16 Glycopyrrolate (Glycopyrrolate 0.2 Mg/Ml Sdv) Confirm Administered Dose 0.2 mg .ROUTE .STK-MED ONE Stop: 07/25/20 13:16 Hydralazine HCl (Hydralazine 20 Mg/Ml Sdv) Confirm Administered Dose 20 mg .ROUTE .STK-MED ONE Stop: 07/25/20 10:57 Hydromorphone HCl (Hydromorphone 0.5 Mg/0.5 Ml Syringe) Confirm Administered Dose 0.5 mg .ROUTE .STK-MED ONE Stop: 07/25/20 07:26 Hydromorphone HCl (Hydromorphone 0.5 Mg/0.5 Ml Syringe) 0.5 mg IVPUSH Q10M PRN PRN Reason: Pain (severe 7-10) Stop: 07/25/20 12:00 Hydromorphone HCl (Hydromorphone 0.5 Mg/0.5 Ml Syringe) Confirm Administered Dose 0.5 mg .ROUTE .STK-MED ONE Stop: 07/25/20 11:02 Lactated Ringer's (Ringers, Lactated) 1,000 mls @ 125 mls/hr IV ASDIRECTED [facility] Stop: 07/25/20 23:00 Last Admin: 07/25/20 08:20 Dose: 125 mls/hr Documented by: Lidocaine HCl (Xylocaine-Mpf 1%) Confirm Administered Dose 4 mls @ as directed .ROUTE .ST-MED ONE Stop: 07/25/20 07:07 Lactated Ringer's (Ringers, Lactated) Confirm Administered Dose 1,000 mls @ as directed .ROUTE .[facility]-MED ONE Stop: 07/25/20 07:07 Lidocaine HCl (Xylocaine-Mpf 1%) Confirm Administered Dose 4 mls @ as directed .ROUTE .ST-MED ONE Stop: 07/25/20 07:26 Lactated Ringer's (Ringers, Lactated) Confirm Administered Dose 1,000 mls @ as d irected .ROUTE .[facility]-MED ONE Stop: 07/25/20 07:26 Metronidazole 500 mg/ Premix 100 mls @ 100 mls/hr IV ONETIME ONE Stop: 07/25/20 08:59 Last Admin: 07/25/20 08:15 Dose: 100 mls/hr Documented by: Lactated Ringer's (Ringers, Lactated) Confirm Administered Dose 1,000 mls @ as directed .ROUTE .[facility]-MED ONE Stop: 07/25/20 11:27 Lactated Ringer's (Ringers, Lactated) Confirm Administered Dose 1,000 mls @ as directed .ROUTE .[facility]-MED ONE Stop: 07/25/20 13:03 Sodium Chloride (Sodium Chloride 0.45%) 1,000 mls @ 75 mls/hr IV ASDIRECTED [facility] Last Admin: 07/26/20 05:54 Dose: 75 mls/hr Documented by: Ketorolac Tromethamine (Ketorolac 30 Mg/Ml Sdv) Confirm Administered Dose 30 mg .ROUTE .STK-MED ONE Stop: 07/25/20 07:26 Ketorolac Tromethamine (Ketorolac 15 Mg/Ml Sdv) 15 mg IVPUSH Q6H [facility] Stop: 07/26/20 09:01 Last Admin: 07/26/20 09:03 Dose: 15 mg Documented by: Labetalol HCl (Labetalol 100 Mg/20 Ml Mdv) Confirm Administered Dose 100 mg .ROUTE .STK-MED ONE Stop: 07/25/20 10:32 Lidocaine/Epinephrine (Lidocaine 1% With Epinephrine 1:100,000 10 Ml Mdv) Confirm Administered Dose 30 ml .ROUTE .STK-MED ONE Stop: 07/25/20 08:01 Last Admin: 07/25/20 10:11 Dose: 20 ml Documented by: Lidocaine/Sodium Bicarbonate (Lidocaine 1%/Sod Bicarbonate In Ns 8.4% 1 Ml Syringe) 0.25 ml IDERM ONETIME PRN PRN Reason: Prior to IV Start Stop: 07/25/20 18:00 Midazolam HCl (Midazolam 1 Mg/Ml 2 Ml Sdv) Confirm Administered Dose 2 mg .ROUTE .STK-MED ONE Stop: 07/25/20 07:27 Miscellaneous Medication (Phenylephrine Hcl In 0.9% Nacl 1 Mg/10 Ml Syringe) Confirm Administered Dose 1 mg .ROUTE .STXetawave-MED ONE Stop: 07/25/20 07:26 Miscellaneous Medication (Phenylephrine Hcl In 0.9% Nacl 1 Mg/10 Ml Syringe) 0.1 mg IVPUSH Q10M PRN PRN Reason: Hypotension Stop: 07/25/20 16:00 Neostigmine Methylsulfate (Neostigmine Methylsulfate 5 Mg/5 Ml Syringe) Confirm Administered Dose 5 mg .ROUTE .STXetawave-MED ONE Stop: 07/25/20 13:16 Ondansetron HCl (Ondansetron 4 Mg/2 Ml Sdv) Confirm Administered Dose 4 mg .R OUTE .STXetawave-MED ONE Stop: 07/25/20 07:26 Ondansetron HCl (Ondansetron 4 Mg/2 Ml Sdv) 4 mg IVPUSH ONETIME PRN PRN Reason: Nausea/Vomiting Stop: 07/25/20 16:00 Propofol (Propofol 200 Mg/20 Ml Sdv) Confirm Administered Dose 400 mg .ROUTE .STK-MED ONE Stop: 07/25/20 07:07 Propofol (Propofol 200 Mg/20 Ml Sdv) Confirm Administered Dose 200 mg .ROUTE .STXetawave-MED ONE Stop: 07/25/20 07:26 Rocuronium [place] (Rocuronium 50 Mg/5 Ml Vial) Confirm Administered Dose 50 mg .ROUTE .STXetawave-MED ONE Stop: 07/25/20 07:26 Rocuronium [place] (Rocuronium 50 Mg/5 Ml Vial) Confirm Administered Dose 50 mg .ROUTE .STXetawave-MED ONE Stop: 07/25/20 11:51 Scopolamine (Scopolamine 1.5 Mg Transdermal Patch) 1.5 mg TRDERM ONETIME PRN PRN Reason: PONV Stop: 07/25/20 16:00 Last Admin: 07/25/20 08:00 Dose: 1.5 mg Documented by: Sodium Chloride (Sodium Chloride 0.9% 10 Ml Syringe) 10 ml FLUSH ASDIRECTED PRN PRN Reason: Keep Vein Open Stop: 07/25/20 18:00
[2020-07-26 16:29] VITALS: BP 101/71; PULSE 61
== END 2020-07-26 19:15 | disposition home or self-care (01) | DRG 331 ==
LOC: JD.MS 07:36
PROVIDERS: ADMIT Surgery; ATTEND Surgery
PROC: 0DTF4ZZ Resection of Right Large Intestine, Percutaneous Endoscopic Approach (ICD-10-PCS; principal; 2020-07-25)
DX: K63.5 Polyp of colon (principal); D37.3 Neoplasm of uncertain behavior of appendix; E11.9 Type 2 diabetes mellitus without complications; F32.9 Major depressive disorder, single episode, unspecified; Z79.4 Long term (current) use of insulin; K21.9 Gastro-esophageal reflux disease without esophagitis; E78.5 Hyperlipidemia, unspecified; Z87.01 Personal history of pneumonia (recurrent); I48.91 Unspecified atrial fibrillation; Z79.01 Long term (current) use of anticoagulants; Z98.890 Other specified postprocedural states; Z90.49 Acquired absence of other specified parts of digestive tract; Z98.42 Cataract extraction status, left eye; Z98.41 Cataract extraction status, right eye; Z90.89 Acquired absence of other organs; E66.01 Morbid (severe) obesity due to excess calories; Z68.29 Body mass index [BMI] 29.0-29.9, adult
CPT/HCPCS: 00790; 36415; 51702; 80048; 80053; 82947; 85025; 85610; 86850; 86900; 86901; 88307; 93005; 94640; 94762; 99100; A9270-GY; J0360; J0690; J1100; J1170; J1644; J1885; J2250; J2370; J2405; J2704; J2710; J3010; J3490; J7030; J7120

== ENCOUNTER 2021-07-09 04:02 | Emergency (ER) | payer MEDICARE, OTHER ==
[2021-07-09] MEDS ORDERED: Alum Hydrox/Mag Hydrox/Simeth 30 ML, Lidocaine 2% 15 ML PO ONE ×2 (04:54)
[2021-07-09] MEDS ORDERED: Pantoprazole 40 MG in Sodium Chloride 0.9% 100 ML IV ONE (05:15)
[2021-07-09] MEDS ORDERED: Iopamidol 612 MG/ML 100 ML Bottle IVPUSH ONE (05:30)
[2021-07-09] MEDS ORDERED: Sodium Chloride 0.9% 100 ML IV SCH (05:30)
[2021-07-09] MEDS ORDERED: Pantoprazole 40 MG Vial IVPUSH ONE (05:32)
[2021-07-09] MEDS: Sodium Chloride 0.9% 10 ML Syringe FLUSH ONE ×2 (05:41→06:35)
[2021-07-09] MEDS ORDERED: Ondansetron 4 MG/2 ML SDV IVPUSH ONE (05:45)
[2021-07-09] MEDS ORDERED: fentaNYL 100 MCG/2 ML SDV IVPUSH ONE ×2 (05:46→06:09)
[2021-07-09] MEDS ORDERED: Sucralfate Suspension 1 GM/10 ML Cup PO ONE (06:44)
[2021-07-09 09:41] VITALS: BP 139/86; PULSE 79
== END 2021-07-09 09:22 | disposition home or self-care (01) ==
LOC: JD.ED 04:02
DX: K21.9 Gastro-esophageal reflux disease without esophagitis (principal); R10.13 Epigastric pain; E78.00 Pure hypercholesterolemia, unspecified; E11.9 Type 2 diabetes mellitus without complications; E66.9 Obesity, unspecified; Z68.33 Body mass index [BMI] 33.0-33.9, adult; Z79.82 Long term (current) use of aspirin; Z79.899 Other long term (current) drug therapy; Z88.8 Allergy status to other drugs, medicaments and biological substances; Z88.2 Allergy status to sulfonamides
CPT/HCPCS: 36415; 71045; 74019; 74177; 80053; 83605; 83690; 84484; 85025; 93005; 96374; 96375; 99285; A9270; C9113; J2405; J3010; J3490; Q9967

== ENCOUNTER 2023-01-19 13:43 | Emergency (ER) | payer MEDICARE, OTHER ==
[2023-01-19] MEDS ORDERED: Sodium Chloride 0.9% 10 ML Syringe FLUSH PRN (14:08)
[2023-01-19] MEDS ORDERED: Sodium Chloride 0.9% 1,000 ML IV SCH (14:15)
[2023-01-19 14:16] LABS: BASOPHILS PERCENT AUTO 0.3 % (0.0-1.0); EOSINOPHILS ABSOLUTE AUTO 0.1 K/mm3 (0.0-0.4); HEMATOCRIT 37.3 % (37.0-47.0); HEMOGLOBIN 12.8 gm/dl (12.0-16.0); IMMATURE GRAN ABSOLUTE AUTO 0.02 K/mm3 (0.00-0.05); IMMATURE GRAN PERCENT AUTO 0.3 % (0.0-0.4); LYMPHOCYTES ABSOLUTE AUTO 1.2 K/mm3 (1.0-4.8); LYMPHOCYTES PERCENT AUTO 16.5 % (24.0-44.0); MEAN CORPUSCULAR HEMOGLOBIN 33.5 pg (28.0-32.0); MEAN CORPUSCULAR HGB CONC 34.3 g/dl (32.0-36.0); MEAN CORPUSCULAR VOLUME 97.6 fl (83.0-99.0); MEAN PLATELET VOLUME 9.7 fl (9.4-12.3); MONOCYTES ABSOLUTE AUTO 0.4 K/mm3 (0.0-0.8); MONOCYTES PERCENT AUTO 5.2 % (0.0-8.0); NEUTROPHILS ABSOLUTE AUTO 5.3 K/mm3 (1.8-7.7); NEUTROPHILS PERCENT AUTO 76.7 % (41.0-71.0); PLATELET COUNT,PLT 202 K/mm3 (150-400); RED BLOOD CELL COUNT 3.82 M/mm3 (4.10-5.30); WHITE BLOOD CELL COUNT,WBC 6.96 K/mm3 (3.9-11.3)
[2023-01-19 14:37] LABS: A/G RATIO 0.7 (1-2); ALBUMIN 3.3 g/dl (3.4-5.0); ANION GAP 15.6 (5-15); BILIRUBIN TOTAL 0.5 mg/dL (0.2-1.0); CALCIUM 10.2 mg/dL (8.5-10.1); EST CRCL DRUG DOSING (CG) 33.84 mL/min; MAGNESIUM 1.4 mg/dL (1.8-2.4); POTASSIUM,K 3.6 mEq/L (3.5-5.1); PROTEIN TOTAL,TP 8.2 g/dl (6.4-8.2); T4 FREE 1.25 ng/dL (0.76-1.46); TSH 2.97 uIU/mL (0.358-3.74)
[2023-01-19] MEDS ORDERED: Diltiazem 25 MG/5 ML SDV IVPUSH ONE (15:02)
[2023-01-19] MEDS ORDERED: Apixaban 5 MG Tab PO ONE (16:32)
[2023-01-19] MEDS ORDERED: Magnesium Oxide 400 MG Tab PO ONE (16:44)
[2023-01-19] MEDS ORDERED: Diltiazem 120 MG Cap.CD PO ONE (16:50)
[2023-01-19] MEDS ORDERED: Acetaminophen 325 MG Tab PO ONE (16:53)
[2023-01-19 21:08] VITALS: BP 139/88; PULSE 102
== END 2023-01-19 21:06 | disposition home or self-care (01) ==
LOC: JD.ED 13:43
DX: I48.91 Unspecified atrial fibrillation (principal); E11.65 Type 2 diabetes mellitus with hyperglycemia; E78.00 Pure hypercholesterolemia, unspecified; K21.9 Gastro-esophageal reflux disease without esophagitis; E66.9 Obesity, unspecified; Z88.2 Allergy status to sulfonamides; Z88.8 Allergy status to other drugs, medicaments and biological substances; Z79.84 Long term (current) use of oral hypoglycemic drugs; Z79.01 Long term (current) use of anticoagulants; Z79.899 Other long term (current) drug therapy; Z68.25 Body mass index [BMI] 25.0-25.9, adult
CPT/HCPCS: 36415; 80053; 83735; 84439; 84443; 84484; 85025; 93005; 96365; 96366; 96375; 99285; A9270; J0282; J3490; J7030; 93010; 99283

== ENCOUNTER 2023-03-08 20:56 | Emergency (ER) | payer MEDICARE ==
[2023-03-08 21:18] VITALS: BP 156/70; PULSE 88
[2023-03-08] MEDS ORDERED: Alum Hydrox/Mag Hydrox/Simeth 30 ML, Lidocaine 2% 15 ML PO ONE ×2 (21:29)
[2023-03-08] MEDS ORDERED: Sodium Chloride 0.9% 10 ML Syringe FLUSH PRN (21:29)
[2023-03-08 21:56] LABS: BASOPHILS PERCENT AUTO 0.1 % (0.0-1.0); EOSINOPHILS ABSOLUTE AUTO 0.1 K/mm3 (0.0-0.4); EOSINOPHILS PERCENT AUTO 0.7 % (0.0-6.0); HEMATOCRIT 34.4 % (37.0-47.0); IMMATURE GRAN ABSOLUTE AUTO 0.02 K/mm3 (0.00-0.05); IMMATURE GRAN PERCENT AUTO 0.3 % (0.0-0.4); LYMPHOCYTES ABSOLUTE AUTO 0.7 K/mm3 (1.0-4.8); LYMPHOCYTES PERCENT AUTO 9.8 % (24.0-44.0); MEAN CORPUSCULAR HGB CONC 34.9 g/dl (32.0-36.0); MEAN CORPUSCULAR VOLUME 97.5 fl (83.0-99.0); MEAN PLATELET VOLUME 9.4 fl (9.4-12.3); MONOCYTES ABSOLUTE AUTO 0.3 K/mm3 (0.0-0.8); MONOCYTES PERCENT AUTO 4.8 % (0.0-8.0); NEUTROPHILS ABSOLUTE AUTO 5.8 K/mm3 (1.8-7.7); NEUTROPHILS PERCENT AUTO 84.3 % (41.0-71.0); PLATELET COUNT,PLT 115 K/mm3 (150-400); RED BLOOD CELL COUNT 3.53 M/mm3 (4.10-5.30); WHITE BLOOD CELL COUNT,WBC 6.84 K/mm3 (3.9-11.3)
[2023-03-08] MEDS ORDERED: HYDROmorphone 0.5 MG/0.5 ML Syringe IVPUSH ONE (22:07)
[2023-03-08] MEDS ORDERED: Ondansetron 4 MG/2 ML SDV IVPUSH ONE (22:07)
[2023-03-08 22:21] LABS: A/G RATIO 0.8 (1-2); ALANINE AMINOTRANSFERASE,ALT 34 U/L (14-59); ALBUMIN 3.4 g/dl (3.4-5.0); ALKALINE PHOSPHATASE 58 U/L (46-116); ANION GAP 13.1 (5-15); ASPARTATE AMNIOTRANSFERASE,AST 69 U/L (15-37); BILIRUBIN TOTAL 1.4 mg/dL (0.2-1.0); BLOOD UREA NITROGEN,BUN 23 mg/dL (7-18); BUN/CREATININE RATIO 14.4 (14-18); C-REACTIVE PROTEIN <0.2 mg/dL (<1.0); CALCIUM 9.9 mg/dL (8.5-10.1); CARBON DIOXIDE,CO2 26 mEq/L (21-32); CHLORIDE,CL 102 mEq/L (98-107); CREATININE 1.6 mg/dL (0.55-1.02); EST CRCL DRUG DOSING (CG) 20.81 mL/min; ESTIMATED GFR 33 mL/min (>60); GLUCOSE RANDOM 209 mg/dL (70-99); POTASSIUM,K 4.1 mEq/L (3.5-5.1); PROTEIN TOTAL,TP 7.8 g/dl (6.4-8.2); SODIUM,NA 137 mEq/L (136-145); TROPONIN I HIGH SENSITIVITY 18 pg/mL (<=51)
== END 2023-03-09 00:44 | disposition home or self-care (01) ==
LOC: JD.ED 20:56
DX: K81.9 Cholecystitis, unspecified (principal); E78.00 Pure hypercholesterolemia, unspecified; K21.9 Gastro-esophageal reflux disease without esophagitis; E11.9 Type 2 diabetes mellitus without complications; Z88.2 Allergy status to sulfonamides; Z88.8 Allergy status to other drugs, medicaments and biological substances; Z79.899 Other long term (current) drug therapy; Z79.84 Long term (current) use of oral hypoglycemic drugs; Z79.01 Long term (current) use of anticoagulants; Z90.49 Acquired absence of other specified parts of digestive tract
CPT/HCPCS: 36415; 76705; 80053; 84484; 85025; 86140; 93005; 96374; 96375; 99284; A9270; J1170; J2405

== ENCOUNTER 2023-07-05 18:28 | Emergency (ER) | payer MEDICARE ==
[2023-07-05 19:06] LABS: BASOPHILS PERCENT AUTO 0.2 % (0.0-1.0); HEMATOCRIT 30.1 % (37.0-47.0); HEMOGLOBIN 9.9 gm/dl (12.0-16.0); IMMATURE GRAN ABSOLUTE AUTO 0.08 K/mm3 (0.00-0.05); IMMATURE GRAN PERCENT AUTO 0.5 % (0.0-0.4); LYMPHOCYTES ABSOLUTE AUTO 0.6 K/mm3 (1.0-4.8); LYMPHOCYTES PERCENT AUTO 3.5 % (24.0-44.0); MEAN CORPUSCULAR HEMOGLOBIN 32.8 pg (28.0-32.0); MEAN CORPUSCULAR HGB CONC 32.9 g/dl (32.0-36.0); MEAN CORPUSCULAR VOLUME 99.7 fl (83.0-99.0); MEAN PLATELET VOLUME 8.7 fl (9.4-12.3); MONOCYTES ABSOLUTE AUTO 0.5 K/mm3 (0.0-0.8); NEUTROPHILS ABSOLUTE AUTO 15.7 K/mm3 (1.8-7.7); NEUTROPHILS PERCENT AUTO 92.8 % (41.0-71.0); PLATELET COUNT,PLT 193 K/mm3 (150-400); RED BLOOD CELL COUNT 3.02 M/mm3 (4.10-5.30); WHITE BLOOD CELL COUNT,WBC 16.95 K/mm3 (3.9-11.3)
[2023-07-05] MEDS: Ondansetron 4 MG/2 ML SDV IVPUSH ONE (19:13)
[2023-07-05] MEDS: Sodium Chloride 0.9% 10 ML Syringe FLUSH PRN (19:13)
[2023-07-05] MEDS: HYDROmorphone 0.5 MG/0.5 ML Syringe IVPUSH ONE (19:13)
[2023-07-05] MEDS: Sodium Chloride 0.9% 500 ML IV SCH ×2 (19:24→21:12)
[2023-07-05 19:31] LABS: A/G RATIO 0.5 (1-2); ALBUMIN 2.6 g/dl (3.4-5.0); BILIRUBIN TOTAL 0.5 mg/dL (0.2-1.0); BUN/CREATININE RATIO 13.8 (14-18); C-REACTIVE PROTEIN 4.99 mg/dL (<0.30); CALCIUM 9.3 mg/dL (8.5-10.1); CREATININE 1.6 mg/dL (0.55-1.02); EST CRCL DRUG DOSING (CG) 20.81 mL/min; LACTIC ACID 1.2 mmol/L (0.4-2.0); PROTEIN TOTAL,TP 7.7 g/dl (6.4-8.2)
[2023-07-05 19:41] LABS: APPEARANCE,URINE SLT CLOUDY (Clear); BILIRUBIN,URINE 1+ (Negative); COLOR,URINE YELLOW (Yellow); GLUCOSE,URINE NEGATIVE (Negative); KETONES,URINE 1+ (Negative); LEUKOCYTE ESTERASE,URINE NEGATIVE (Negative); NITRITE,URINE NEGATIVE (Negative); OCCULT BLOOD,URINE TRACE-INTACT (Negative); PH,URINE 5.5 (5.0-8.0); PROTEIN,URINE 3+ (Negative); UROBILINOGEN,URINE 0.2 (0.2-1.0)
[2023-07-05 19:47] LABS: WBC,URINE 0-5 /hpf (0-5)
[2023-07-05] MEDS ORDERED: Iopamidol 612 MG/ML 100 ML Bottle IVPUSH ONE (19:59)
[2023-07-05] MEDS ORDERED: Sodium Chloride 0.9% 10 ML Syringe FLUSH PRN (19:59)
[2023-07-05 20:35] LABS: BACTERIA,URINE MODERATE /hpf (FEW); MUCUS,URINE FEW /hpf (FEW)
[2023-07-05] MEDS: cefTRIAXone 500 MG Vial IVPUSH ONE (21:12)
[2023-07-05] MEDS: metroNIDAZOLE/Normal Saline 500 MG in Premix Bag 1 BAG IV ONE (21:12)
[2023-07-05 21:44] VITALS: BP 135/78; PULSE 78
== END 2023-07-05 21:44 ==
LOC: JD.ED 18:28
DX: T81.43XA Infection following a procedure, organ and space surgical site, initial encounter (principal); K86.9 Disease of pancreas, unspecified; I48.91 Unspecified atrial fibrillation; E78.00 Pure hypercholesterolemia, unspecified; K21.9 Gastro-esophageal reflux disease without esophagitis; E11.9 Type 2 diabetes mellitus without complications; E66.9 Obesity, unspecified; J45.909 Unspecified asthma, uncomplicated; Z88.2 Allergy status to sulfonamides; Z88.8 Allergy status to other drugs, medicaments and biological substances; Z88.4 Allergy status to anesthetic agent; Z79.84 Long term (current) use of oral hypoglycemic drugs; Z79.01 Long term (current) use of anticoagulants; Z79.899 Other long term (current) drug therapy; Z68.21 Body mass index [BMI] 21.0-21.9, adult
CPT/HCPCS: 36415; 74177; 80053; 81001; 83605; 85025; 86140; 87040; 96361; 96374; 96375; 99285; J0696; J1170; J1836; J2405; J3490; J7030

== ENCOUNTER 2024-01-15 16:16 | Inpatient (IN) | payer MEDICARE ==
[2024-01-15] MEDS: Diltiazem 25 MG/5 ML SDV IVPUSH ONE (17:28)
[2024-01-15] MEDS: Sodium Chloride 0.9% 10 ML Syringe FLUSH PRN (17:28)
[2024-01-15 17:37] LABS: BASOPHILS PERCENT AUTO 0.2 % (0.0-1.0); EOSINOPHILS PERCENT AUTO 0.4 % (0.0-6.0); HEMATOCRIT 31.6 % (37.0-47.0); IMMATURE GRAN ABSOLUTE AUTO 0.01 K/mm3 (0.00-0.05); IMMATURE GRAN PERCENT AUTO 0.2 % (0.0-0.4); LYMPHOCYTES ABSOLUTE AUTO 0.8 K/mm3 (1.0-4.8); MEAN CORPUSCULAR HEMOGLOBIN 32.8 pg (28.0-32.0); MEAN CORPUSCULAR HGB CONC 31.6 g/dl (32.0-36.0); MEAN CORPUSCULAR VOLUME 103.6 fl (83.0-99.0); MEAN PLATELET VOLUME 9.9 fl (9.4-12.3); MONOCYTES ABSOLUTE AUTO 0.3 K/mm3 (0.0-0.8); MONOCYTES PERCENT AUTO 5.8 % (0.0-8.0); NEUTROPHILS ABSOLUTE AUTO 4.1 K/mm3 (1.8-7.7); NEUTROPHILS PERCENT AUTO 78.4 % (41.0-71.0); PLATELET COUNT,PLT 144 K/mm3 (150-400); RED BLOOD CELL COUNT 3.05 M/mm3 (4.10-5.30); WHITE BLOOD CELL COUNT,WBC 5.21 K/mm3 (3.9-11.3)
[2024-01-15 18:07] LABS: A/G RATIO 0.9 (1-2); ALANINE AMINOTRANSFERASE,ALT 18 U/L (14-59); ALBUMIN 3.5 g/dl (3.4-5.0); ALKALINE PHOSPHATASE 63 U/L (46-116); ANION GAP 16.2 (5-15); BILIRUBIN TOTAL 0.4 mg/dL (0.2-1.0); BLOOD UREA NITROGEN,BUN 27 mg/dL (7-18); BUN/CREATININE RATIO 13.5 (14-18); CARBON DIOXIDE,CO2 20 mEq/L (21-32); CHLORIDE,CL 105 mEq/L (98-107); EST CRCL DRUG DOSING (CG) 16.65 mL/min; ESTIMATED GFR 25 mL/min (>60); GLUCOSE RANDOM 256 mg/dL (70-99); PROTEIN TOTAL,TP 7.6 g/dl (6.4-8.2); SODIUM,NA 136 mEq/L (136-145); TROPONIN I HIGH SENSITIVITY 24 pg/mL (<=51)
[2024-01-15 18:10] LABS: CORONAVIRUS COVID-19 NAA NEGATIVE (NEGATIVE); INFLUENZA A NAA NEGATIVE (NEGATIVE); RESPIRATORY SYNCYTIAL VIR NAA NEGATIVE (NEGATIVE)
[2024-01-15 18:15] LABS: LACTIC ACID 4.3 mmol/L (0.4-2.0)
[2024-01-15 18:16] LABS: C-REACTIVE PROTEIN < 0.05 mg/dL (<0.30)
[2024-01-15 18:17] LABS: ASPARTATE AMNIOTRANSFERASE,AST 19 U/L (15-37); POTASSIUM,K 5.2 mEq/L (3.5-5.1)
[2024-01-15] MEDS: Furosemide 40 MG/4 ML VIAL IVPUSH ONE (18:40)
[2024-01-15] MEDS: Diltiazem 125 MG in Sodium Chloride 0.9% 100 ML IV SCH (18:41)
[2024-01-15] MEDS ORDERED: Ondansetron 4 MG/2 ML SDV IV PRN (18:55)
[2024-01-15] MEDS: atorvaSTATin 20 MG Tab PO SCH (20:35)
[2024-01-15] MEDS: Apixaban 5 MG Tab PO SCH (20:38)
[2024-01-15] MEDS: Insulin Lispro 100 Unit/ML 3 ML KwikPen SUBCUT SCH (20:38)
[2024-01-15] MEDS: Acetaminophen 325 MG Tab PO PRN (21:40)
[2024-01-16 05:43] LABS: HEMATOCRIT 30.1 % (37.0-47.0); HEMOGLOBIN 9.8 gm/dl (12.0-16.0); MEAN CORPUSCULAR HGB CONC 32.6 g/dl (32.0-36.0); MEAN CORPUSCULAR VOLUME 101.3 fl (83.0-99.0); MEAN PLATELET VOLUME 9.7 fl (9.4-12.3); PLATELET COUNT,PLT 146 K/mm3 (150-400); RED BLOOD CELL COUNT 2.97 M/mm3 (4.10-5.30); WHITE BLOOD CELL COUNT,WBC 4.56 K/mm3 (3.9-11.3)
[2024-01-16 06:16] LABS: A/G RATIO 0.8 (1-2); ALBUMIN 3.2 g/dl (3.4-5.0); ANION GAP 15.2 (5-15); BILIRUBIN TOTAL 0.5 mg/dL (0.2-1.0); BUN/CREATININE RATIO 13.3 (14-18); CALCIUM 9.6 mg/dL (8.5-10.1); CREATININE 1.8 mg/dL (0.55-1.02); EST CRCL DRUG DOSING (CG) 18.5 mL/min; MAGNESIUM 1.5 mg/dL (1.8-2.4); POTASSIUM,K 4.2 mEq/L (3.5-5.1); PROTEIN TOTAL,TP 7.1 g/dl (6.4-8.2)
[2024-01-16] MEDS: Pantoprazole 40 MG Tab.CR PO SCH (06:45)
[2024-01-16] MEDS ORDERED: Magnesium Sulfate (4.06 MEQ/ML) 5 GM/10 ML SDV IV ONE (07:30)
[2024-01-16] MEDS: Magnesium Sulfate/Water Premix 50 ML IV ONE (07:42)
[2024-01-16] MEDS: Diltiazem 120 MG Cap.CD PO SCH (08:10)
[2024-01-16] MEDS: Metoprolol Succinate 50 MG Tab.ER PO SCH (08:10)
[2024-01-16] MEDS: FLUoxetine 20 MG Cap PO SCH (08:10)
[2024-01-16] MEDS ORDERED: Sennosides/Docusate Sodium 50-8.6 MG Tab PO PRN (14:06)
[2024-01-16] MEDS: Melatonin 3 MG Tab PO ONE (17:34)
[2024-01-16] MEDS: FLU (Fluad Triv) TS24-25 (65UP)/MF59C/PF 45 MCG/0.5 ML Syringe IM ONE (19:40)
[2024-01-16] MEDS: Apixaban 2.5 MG Tab PO ONE (19:41)
[2024-01-16] MEDS: Apixaban 2.5 MG Tab PO SCH (20:02)
[2024-01-16] MEDS: Melatonin 3 MG Tab PO SCH (20:05)
[2024-01-17 05:26] LABS: HEMATOCRIT 28.8 % (37.0-47.0); HEMOGLOBIN 9.6 gm/dl (12.0-16.0); MEAN CORPUSCULAR HEMOGLOBIN 33.4 pg (28.0-32.0); MEAN CORPUSCULAR HGB CONC 33.3 g/dl (32.0-36.0); MEAN CORPUSCULAR VOLUME 100.3 fl (83.0-99.0); MEAN PLATELET VOLUME 9.9 fl (9.4-12.3); PLATELET COUNT,PLT 157 K/mm3 (150-400); RED BLOOD CELL COUNT 2.87 M/mm3 (4.10-5.30); WHITE BLOOD CELL COUNT,WBC 5.77 K/mm3 (3.9-11.3)
[2024-01-17 05:54] LABS: ANION GAP 14.3 (5-15); BUN/CREATININE RATIO 13.5 (14-18); CALCIUM 9.4 mg/dL (8.5-10.1); EST CRCL DRUG DOSING (CG) 16.65 mL/min; MAGNESIUM 1.9 mg/dL (1.8-2.4); PHOSPHORUS 2.7 mg/dL (2.6-4.7); POTASSIUM,K 4.3 mEq/L (3.5-5.1)
[2024-01-17 09:22] LABS: FOLIC ACID 86.6 ng/mL (8.6-58.9)
[2024-01-17 16:06] VITALS: BP 126/96; PULSE 70
[2024-01-18] MEDS ORDERED: FLU (Fluad Triv) TS24-25 (65UP)/MF59C/PF 45 MCG/0.5 ML Syringe IM ONE (09:00)
== END 2024-01-17 15:50 | disposition home or self-care (01) | DRG 308 ==
LOC: JD.ED 16:16 → JD.ICU 18:36
PROVIDERS: ADMIT Internal Medicine; ATTEND Student in an Organized Health Care Education/Training Program
DX: I48.91 Unspecified atrial fibrillation (principal); I50.9 Heart failure, unspecified; I48.0 Paroxysmal atrial fibrillation; J96.01 Acute respiratory failure with hypoxia; E87.20 Acidosis, unspecified; N17.9 Acute kidney failure, unspecified; E11.9 Type 2 diabetes mellitus without complications; I50.42 Chronic combined systolic (congestive) and diastolic (congestive) heart failure; E11.22 Type 2 diabetes mellitus with diabetic chronic kidney disease; Z79.84 Long term (current) use of oral hypoglycemic drugs; E78.00 Pure hypercholesterolemia, unspecified; E11.65 Type 2 diabetes mellitus with hyperglycemia; E66.9 Obesity, unspecified; K21.9 Gastro-esophageal reflux disease without esophagitis; D53.9 Nutritional anemia, unspecified; G43.909 Migraine, unspecified, not intractable, without status migrainosus; F32.A Depression, unspecified; J45.909 Unspecified asthma, uncomplicated; E87.5 Hyperkalemia; I08.2 Rheumatic disorders of both aortic and tricuspid valves; Z88.2 Allergy status to sulfonamides; Z88.8 Allergy status to other drugs, medicaments and biological substances; Z79.01 Long term (current) use of anticoagulants; Z90.89 Acquired absence of other organs; Z90.49 Acquired absence of other specified parts of digestive tract; Z68.23 Body mass index [BMI] 23.0-23.9, adult; Z79.899 Other long term (current) drug therapy; Z98.890 Other specified postprocedural states; Z86.0100 Personal history of colon polyps, unspecified
CPT/HCPCS: 0241U; 36415; 71045; 71045-26; 80048; 80053; 82607; 82746; 82947; 83605; 83735; 83880; 84100; 84484; 85025; 85027; 85379; 86140; 93005; 96374; 99285-25; A9270-GY; J1815; J1940; J3475; J3490

== ENCOUNTER 2024-01-19 15:19 | Observation (INO) | payer MEDICARE ==
[2024-01-19] MEDS ORDERED: Sodium Chloride 0.9% 10 ML Syringe FLUSH PRN (16:22)
[2024-01-19 16:24] LABS: BASOPHILS PERCENT AUTO 0.2 % (0.0-1.0); EOSINOPHILS ABSOLUTE AUTO 0.1 K/mm3 (0.0-0.4); EOSINOPHILS PERCENT AUTO 0.9 % (0.0-6.0); HEMATOCRIT 30.9 % (37.0-47.0); HEMOGLOBIN 10.1 gm/dl (12.0-16.0); IMMATURE GRAN ABSOLUTE AUTO 0.02 K/mm3 (0.00-0.05); IMMATURE GRAN PERCENT AUTO 0.4 % (0.0-0.4); LYMPHOCYTES ABSOLUTE AUTO 1.1 K/mm3 (1.0-4.8); LYMPHOCYTES PERCENT AUTO 20.3 % (24.0-44.0); MEAN CORPUSCULAR HEMOGLOBIN 33.6 pg (28.0-32.0); MEAN CORPUSCULAR HGB CONC 32.7 g/dl (32.0-36.0); MEAN CORPUSCULAR VOLUME 102.7 fl (83.0-99.0); MEAN PLATELET VOLUME 9.8 fl (9.4-12.3); MONOCYTES ABSOLUTE AUTO 0.4 K/mm3 (0.0-0.8); MONOCYTES PERCENT AUTO 6.6 % (0.0-8.0); NEUTROPHILS ABSOLUTE AUTO 3.9 K/mm3 (1.8-7.7); NEUTROPHILS PERCENT AUTO 71.6 % (41.0-71.0); PLATELET COUNT,PLT 142 K/mm3 (150-400); RED BLOOD CELL COUNT 3.01 M/mm3 (4.10-5.30); WHITE BLOOD CELL COUNT,WBC 5.48 K/mm3 (3.9-11.3)
[2024-01-19] MEDS: Diltiazem 25 MG/5 ML SDV IVPUSH ONE (16:35)
[2024-01-19 16:40] LABS: ANION GAP 15.2 (5-15); BUN/CREATININE RATIO 13.6 (14-18); CALCIUM 9.9 mg/dL (8.5-10.1); CREATININE 2.2 mg/dL (0.55-1.02); EST CRCL DRUG DOSING (CG) 15.14 mL/min; POTASSIUM,K 4.2 mEq/L (3.5-5.1)
[2024-01-19] MEDS: Furosemide 40 MG/4 ML VIAL IVPUSH ONE (17:09)
[2024-01-19] MEDS: Digoxin 125 MCG Tab PO ONE (18:16)
[2024-01-19] MEDS: Metoprolol Succinate 50 MG Tab.ER PO ONE (19:12)
[2024-01-19] MEDS ORDERED: Acetaminophen 325 MG Tab PO PRN (19:34)
[2024-01-19 20:30] LABS: TSH 2.09 uIU/mL (0.358-3.74)
[2024-01-20 05:19] LABS: BUN/CREATININE RATIO 17.1 (14-18); CALCIUM 9.2 mg/dL (8.5-10.1); CREATININE 2.1 mg/dL (0.55-1.02); EST CRCL DRUG DOSING (CG) 15.86 mL/min
[2024-01-20] MEDS: Insulin Lispro 100 Unit/ML 3 ML KwikPen SUBCUT SCH (07:52)
[2024-01-20] MEDS: Digoxin 125 MCG Tab PO SCH (08:36)
[2024-01-20] MEDS: Carvedilol 6.25 MG Tab PO SCH (09:54)
[2024-01-20 13:32] VITALS: BP 122/71; PULSE 84
== END 2024-01-20 16:04 | disposition home or self-care (01) ==
LOC: JD.ED 15:19 → JD.MS 19:01
PROVIDERS: ADMIT Family Medicine; ATTEND Family Medicine
DX: I48.20 Chronic atrial fibrillation, unspecified (principal); I50.43 Acute on chronic combined systolic (congestive) and diastolic (congestive) heart failure; E11.22 Type 2 diabetes mellitus with diabetic chronic kidney disease; N18.30 Chronic kidney disease, stage 3 unspecified; J45.909 Unspecified asthma, uncomplicated; N17.9 Acute kidney failure, unspecified; E78.00 Pure hypercholesterolemia, unspecified; Z79.84 Long term (current) use of oral hypoglycemic drugs; Z79.01 Long term (current) use of anticoagulants; Z79.899 Other long term (current) drug therapy; Z88.2 Allergy status to sulfonamides
CPT/HCPCS: 36415; 71045; 80048; 82947; 83880; 84443; 84484; 85025; 87641; 93005; 94760; 96374; 96375; 99285; A9270; J1815; J1940; J3490